=== PATIENT | female | born 1990 | race Caucasian/White ===

== ENCOUNTER 2017-10-15 21:50 | Emergency (ER) | payer OTHER ==
[2017-10-15] MEDS ORDERED: IBUPROFEN 400 MG TAB ONE (23:12)
[2017-10-15 23:37] LABS: Urine Blood 2+ (NEG); Urine Glucose NEGATIVE (NEG); Urine Protein NEGATIVE (NEG); Urine Specific Gravity >1.030 (1.005-1.030); Urine pH 5.5 (5.0-7.0)
--- NOTE | 2017-10-16 00:39 | ER ---
Nurse's Notes [facility] Name: Nehal Hudson Age: 26 yrs Sex: Female : 1990 Arrival Date: 10/15/2017 Time: 22:04 Bed 5 Private MD: Diagnosis: Other specified sprain of right wrist Presentation: 10/15 22:04 Presenting complaint: Patient states: I have been having pain in my right hand and la1 wrist since yesterday, Im not sure exactly what happened but I am having redness and swelling my right hand. Transition of care: patient was not received from another setting of care. Onset of symptoms was October 15, 2017. Initial Sepsis Screen: Does the patient meet any 2 criteria? No. Patient's initial sepsis screen is negative. Does the patient have a suspected source of infection? No. Patient's initial sepsis screen is negative. Care prior to arrival: None. 22:04 Method Of Arrival: Ambulatory la1 22:04 Acuity: AC 4 la1 Triage Assessment: 22:31 General: Appears in no apparent distress. Behavior is calm, cooperative. ak1 10/16 00:50 Pain: Complains of pain in right hand. 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 - Social history:: Smoking status: Patient/guardian denies using tobacco. Screenin:30 Abuse screen: Denies threats or abuse. Denies injuries from another. Nutritional ak1 screening: No deficits noted. Tuberculosis screening: No symptoms or risk factors identified. Fall Risk None identified. Assessment: 10/16 00:50 General: Appears in no apparent distress. Behavior is calm, cooperative. Pain: ak1 Complains of pain in right hand. Neuro: No deficits noted. Cardiovascular: No deficits noted. Respiratory: No deficits noted. GI: No signs and/or symptoms were reported involving the gastrointestinal system. : No signs and/or symptoms were reported regarding the genitourinary system. EENT: No signs and/or symptoms were reported regarding the EENT system. Derm: No signs and/or symptoms reported regarding the dermatologic system. Musculoskeletal: Range of motion: intact in all extremities. Vital Signs: 10/15 22:05 BP 116 / 90; Pulse 98; Resp 16; Temp 98.6; Pulse Ox 100% on R/A; Weight 64.86 kg; la1 Height 5 ft. 1 in. (154.94 cm); 22:05 Body Mass Index 27.02 (64.86 kg, 154.94 cm) la1 ED Course: 22:04 Patient arrived in ED. ds1 22:05 Triage completed. la1 22:06 Arm band placed on right wrist. la1 22:10 Loreto Husain FNP is PHCP. kav 22:10 Edy Olivares MD is Attending Physician. kav 22:30 Heather Elkins, CHRISTIE is Primary Nurse. ak1 22:30 Patient has correct armband on for positive identification. Bed in low position. Call ak1 light in reach. Side rails up X 1. Pulse ox on. NIBP on. 10/16 00:15 Hand Right 3 View XRAY In Process Unspecified. EDMS 00:15 Forearm Right XRAY In Process Unspecified. EDMS 00:49 No provider procedures requiring assistance completed. Patient did not have IV access ak1 during this emergency room visit. Administered Medications: 10/15 23:18 Drug: Ibuprofen 800 mg Route: PO; ak1 10/16 00:46 Follow up: Response: No adverse reaction ak1 Outcome: 00:39 Discharge ordered by . kav 00:50 Discharged to home ambulatory. ak1 00:50 Condition: good 00:50 Discharge instructions given to patient, Instructed on discharge instructions, follow up and referral plans. no drinking with medication, no driving heavy equipment, medication usage, Demonstrated understanding of instructions, follow-up care, medications, Prescriptions given X 1. 00:51 Patient left the ED. ak1 Signatures: Dispatcher [employer] EDMT Loreto Husain FNP FNP kav Sanford, Demi ds1 Maximo Mays RN RN la Heather Elkins RN RN ak1
--- NOTE | 2017-10-16 00:39 | EDPHYS ---
Physician Documentation [facility] Name: Nehal Hudson Age: 26 yrs Sex: Female : 1990 Arrival Date: 10/15/2017 Time: 22:04 Bed 5 Private MD: Edy Rodriguez HPI: 10/15 22:10 This 26 yrs old Female presents to ER via Ambulatory with complaints of Hand kav Pain. 10/16 00:28 The patient or guardian reports swelling, tenderness. The complaints affect the right kav hand diffusely. 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 Onset: The symptoms/episode began/occurred acutely, 2 month(s) ago. Modifying factors: The symptoms are alleviated by nothing, the symptoms are aggravated by movement. Associated signs and symptoms: The patient has no apparent associated signs or symptoms. Severity of symptoms: At their worst the symptoms were mild, just prior to arrival. The patient has not experienced similar symptoms in the past. The patient has not recently seen a physician. 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 - Social history:: Smoking status: Patient/guardian denies using tobacco. ROS: 10/16 00:29 Constitutional: Negative for fever, chills, and weight loss, Eyes: Negative for injury, kav pain, redness, and discharge, ENT: Negative for injury, pain, and discharge, Neck: Negative for injury, pain, and swelling, Cardiovascular: Negative for chest pain, palpitations, and edema, Respiratory: Negative for shortness of breath, cough, wheezing, and pleuritic chest pain, Abdomen/GI: Negative for abdominal pain, nausea, vomiting, diarrhea, and constipation, Back: Negative for injury and pain, : Negative for injury, bleeding, discharge, and swelling, Skin: Negative for injury, rash, and discoloration, Neuro: Negative for headache, weakness, numbness, tingling, and seizure, Psych: Negative for depression, anxiety, suicide ideation, homicidal ideation, and hallucinations, Allergy/Immunology: Negative for hives, rash, and allergies, Endocrine: Negative for neck swelling, polydipsia, polyuria, polyphagia, and marked weight changes, Hematologic/Lymphatic: Negative for swollen nodes, abnormal bleeding, and unusual bruising. MS/extremity: Positive for pain, swelling. Exam: 00:29 Constitutional: This is a well developed, well nourished patient who is awake, alert, kav and in no acute distress. Head/Face: Normocephalic, atraumatic. Eyes: Pupils equal round and reactive to light, extra-ocular motions intact. Lids and lashes normal. Conjunctiva and sclera are non-icteric and not injected. Cornea within normal limits. Periorbital areas with no swelling, redness, or edema. ENT: Nares patent. No nasal discharge, no septal abnormalities noted. Tympanic membranes are normal and external auditory canals are clear. Oropharynx with no redness, swelling, or masses, exudates, or evidence of obstruction, uvula midline. Mucous membranes moist. Neck: Trachea midline, no thyromegaly or masses palpated, and no cervical lymphadenopathy. Supple, full range of motion without nuchal rigidity, or vertebral point tenderness. No Meningismus. Chest/axilla: Normal chest wall appearance and motion. Nontender with no deformity. No lesions are appreciated. Cardiovascular: Regular rate and rhythm with a normal S1 and S2. No gallops, murmurs, or rubs. Normal PMI, no JVD. No pulse deficits. Respiratory: Lungs have equal breath sounds bilaterally, clear to auscultation and percussion. No rales, rhonchi or wheezes noted. No increased work of breathing, no retractions or nasal flaring. Abdomen/GI: Soft, non-tender, with normal bowel sounds. No distension or tympany. No guarding or rebound. No evidence of tenderness throughout. Back: No spinal tenderness. No costovertebral tenderness. Full range of motion. Skin: Warm, dry with normal turgor. Normal color with no rashes, no lesions, and no evidence of cellulitis. Neuro: Awake and alert, GCS 15, oriented to person, place, time, and situation. Cranial nerves II-XII grossly intact. Motor strength 5/5 in all extremities. Sensory grossly intact. Cerebellar exam normal. Normal gait. Psych: Awake, alert, with orientation to person, place and time. Behavior, mood, and affect are within normal limits. 00:29 Musculoskeletal/extremity: Extremities: noted in the right hand: pain, swelling, ROM: limited active range of motion, in the right hand, Circulation is intact in all extremities. Sensation intact. Joints: painful range of motion, swelling. Vital Signs: 10/15 22:05 BP 116 / 90; Pulse 98; Resp 16; Temp 98.6; Pulse Ox 100% on R/A; Weight 64.86 kg; la1 Height 5 ft. 1 in. (154.94 cm); 22:05 Body Mass Index 27.02 (64.86 kg, 154.94 cm) la1 MDM: 22:24 Patient medically screened. [facility] 10/15 23:18 Order name: Urine Dipstick--Ancillary (enter results); Complete Time: 23:40 [facility] 10/15 23:40 Interpretation: Abnormal: UBLD 2+. [facility] 10/15 23:18 Order name: Urine --Ancillary (enter results); Complete Time: 23:40 [facility] 10/15 23:40 Interpretation: Abnormal: USPGR >1.030. [facility] 10/15 23:06 Order name: Urine Test (obtain specimen); Complete Time: 23:17 ka 10/15 23:06 Order name: Hand Right 3 View XRAY [facility] 10/15 23:06 Order name: Forearm Right XRAY [facility] 10/16 00:40 Order name: Charles Wrap; Complete Time: 00:46 kav Administered Medications: 23:18 Drug: Ibuprofen 800 mg Route: PO; ak1 10/16 00:46 Follow up: Response: No adverse reaction ak1 Disposition: 07:11 Co-signature as Attending Physician, Edy Olivares MD I agree with the assessment and [facility] plan of care. Disposition: 10/16/17 00:39 Discharged to Home. Impression: Other specified sprain of right wrist. - Condition is Stable. - Discharge Instructions: Wrist Pain, [id number]. - Prescriptions for Ibuprofen 800 mg Oral Tablet - take 1 tablet by ORAL route every 8 hours As needed take with food; 30 tablet. - Medication Reconciliation Form, Thank You Letter form. - Follow up: Private Physician; When: 5 - 6 days; Reason: Recheck today's complaints, Continuance of care, Re-evaluation by your physician. - Problem is new. - Symptoms have improved. Signatures: Dispatcher [employer] EDMS Edy Olivares, Loreto Tabor MD, cha, FLOOR SCRAPER Maximo Maravilla, RN RN la1 Heather Elkins RN RN ak1 Corrections: (The following items were deleted from the chart) 00:51 00:39 10/16/2017 00:39 Discharged to Home. Impression: Other specified sprain of right ak1 wrist. Condition is Stable. Discharge Instructions: Wrist Pain, [id number]. Prescriptions for Ibuprofen 800 mg Oral Tablet - take 1 tablet by ORAL route every 8 hours As needed take with food; 30 tablet. and Forms are Medication Reconciliation Form, Thank You Letter, Antibiotic Education, Prescription Opioid Use. Follow up: Private Physician; When: 5 - 6 days; Reason: Recheck today's complaints, Continuance of care, Re-evaluation by your physician. Problem is new. Symptoms have improved. praful
--- NOTE | 2017-10-16 09:09 | RAD REPORT ---
EXAM DESCRIPTION: RAD - Hand Right 3 View - 10/16/2017 12:17 am CLINICAL HISTORY: Right hand and forearm pain and swelling COMPARISON: None. FINDINGS: Right forearm and right hand, multiple views. No bone or joint abnormality is detected.
--- NOTE | 2017-10-16 10:21 | RAD REPORT ---
EXAM DESCRIPTION: RAD - Forearm Right - 10/16/2017 12:16 am CLINICAL HISTORY: Right hand and forearm pain and swelling COMPARISON: None. FINDINGS: Right forearm and right hand, multiple views. No bone or joint abnormality is detected.
== END 2017-10-16 00:51 | disposition home or self-care (01) ==
LOC: ER 21:50
DX: S63.591A Other specified sprain of right wrist, initial encounter (principal); X58.XXXA Exposure to other specified factors, initial encounter; Y93.89 Activity, other specified; Y92.009 Unspecified place in unspecified non-institutional (private) residence as the place of occurrence of the external cause
CPT/HCPCS: 81003; 81025; 99284

== ENCOUNTER 2017-10-19 12:38 | Emergency (ER) | payer OTHER ==
[2017-10-19] MEDS ORDERED: predniSONE 20 MG TAB ONE (13:03)
[2017-10-19] MEDS ORDERED: IPRATROPIUM BROM 0.5MG/2.5ML ONE (13:03)
[2017-10-19] MEDS ORDERED: ALBUTEROL 2.5 MG/3 ML NEB SOL ONE (13:03)
--- NOTE | 2017-10-19 13:44 | EDPHYS ---
Physician Documentation [facility] Name: Nehal Hudson Age: 26 yrs Sex: Female : 1990 Arrival Date: 10/19/2017 Time: 12:41 Bed 24 Private MD: None, None ED Physician Edy Olivares HPI: 10/19 13:02 This 26 yrs old Female presents to ER via Ambulatory with complaints of kb Shortness Of Breath. 13:06 The patient has shortness of breath with light activity, and the patient has a history kb of asthma. Onset: The symptoms/episode began/occurred yesterday. Duration: The symptoms are continuous, and are unchanged since they started. The patient's shortness of breath is aggravated by exertion, is alleviated by nothing. Associated signs and symptoms: The patient has no apparent associated signs or symptoms. Severity of symptoms: At their worst the symptoms were mild moderate in the emergency department the symptoms are unchanged. The patient has experienced similar episodes in the past, multiple times. The patient has not recently seen a physician. 13:43 Pt states she has asthma and normally gets better with steroids when this happens. 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 - Social history:: Smoking status: Patient/guardian denies using tobacco. ROS: 13:05 Constitutional: Negative for fever, chills, and weight loss, Cardiovascular: Negative kb for chest pain, palpitations, and edema, Abdomen/GI: Negative for abdominal pain, nausea, vomiting, diarrhea, and constipation, Back: Negative for injury and pain, MS/Extremity: Negative for injury and deformity, Skin: Negative for injury, rash, and discoloration, Neuro: Negative for headache, weakness, numbness, tingling, and seizure. 13:05 Respiratory: Positive for dyspnea on exertion, shortness of breath, Negative for cough, hemoptysis, orthopnea, pleurisy, sputum production, wheezing. Exam: 13:05 Constitutional: This is a well developed, well nourished patient who is awake, alert, kb and in no acute distress. Head/Face: Normocephalic, atraumatic. Neck: Trachea midline, no thyromegaly or masses palpated, and no cervical lymphadenopathy. Supple, full range of motion without nuchal rigidity, or vertebral point tenderness. No Meningismus. Chest/axilla: Normal chest wall appearance and motion. Nontender with no deformity. No lesions are appreciated. Cardiovascular: Regular rate and rhythm with a normal S1 and S2. No gallops, murmurs, or rubs. Normal PMI, no JVD. No pulse deficits. Respiratory: Lungs have equal breath sounds bilaterally, clear to auscultation and percussion. No rales, rhonchi or wheezes noted. No increased work of breathing, no retractions or nasal flaring. Abdomen/GI: Soft, non-tender, with normal bowel sounds. No distension or tympany. No guarding or rebound. No evidence of tenderness throughout. Skin: Warm, dry with normal turgor. Normal color with no rashes, no lesions, and no evidence of cellulitis. MS/ Extremity: Pulses equal, no cyanosis. Neurovascular intact. Full, normal range of motion. Neuro: Awake and alert, GCS 15, oriented to person, place, time, and situation. Cranial nerves II-XII grossly intact. Motor strength 5/5 in all extremities. Sensory grossly intact. Cerebellar exam normal. Normal gait. Vital Signs: 12:46 BP 127 / 90; Pulse 63; Resp 20; Temp 98.3; Pulse Ox 100% on R/A; Weight 63.5 kg; Height la1 5 ft. 1 in. (154.94 cm); 13:44 BP 99 / 65; Pulse 93; Resp 20; Pulse Ox 100% on R/A; Pain 0/10; ed1 12:46 Body Mass Index 26.45 (63.50 kg, 154.94 cm) la1 MDM: 12:51 Patient medically screened. kb 13:04 Data reviewed: vital signs, nurses notes. Data interpreted: Pulse oximetry: on room air kb is 100 %. Interpretation: normal. 13:43 Counseling: I had a detailed discussion with the patient and/or guardian regarding: the kb historical points, exam findings, and any diagnostic results supporting the discharge/admit diagnosis, the need for outpatient follow up, a family practitioner, to return to the emergency department if symptoms worsen or persist or if there are any questions or concerns that arise at home. Administered Medications: 13:06 Drug: DuoNeb (3:1) (2.5 mg - 0.5 mg) 3 ml Route: Nebulizer; ed1 13:46 Follow up: Response: No adverse reaction; Marked relief of symptoms ed1 13:06 Drug: predniSONE 40 mg Route: PO; ed1 13:45 Follow up: Response: No adverse reaction ed1 Disposition: 10/20 09:17 Co-signature as Attending Physician, Edy Olivares MD I agree with the assessment and alanna plan of care. Disposition: 10/19/17 13:43 Discharged to Home. Impression: Unspecified asthma with (acute) exacerbation. - Condition is Stable. - Discharge Instructions: Asthma, Adult, [id number]. - Prescriptions for Prednisone 20 mg Oral Tablet - take 1 tablet by ORAL route once daily for 5 days; 5 tablet. - Medication Reconciliation Form, Thank You Letter, Antibiotic Education, Prescription Opioid Use form. - Follow up: Emergency Department; When: As needed; Reason: Worsening of condition. Follow up: Private Physician; When: 2 - 3 days; Reason: Recheck today's complaints, Continuance of care, Re-evaluation by your physician. Signatures: Yadira Pulido, RESISTOR TESTER-C RESISTOR TESTER-Edy Marvin MD MD cha Riggs, Erika, RECLAMATION FURNACE OPERATOR RECLAMATION FURNACE OPERATOR ed1 Maximo Mays RN RN la1 Corrections: (The following items were deleted from the chart) 10/19 13:51 13:43 10/19/2017 13:43 Discharged to Home. Impression: Unspecified asthma with (acute) ed1 exacerbation. Condition is Stable. Forms are Medication Reconciliation Form, Thank You Letter, Antibiotic Education, Prescription Opioid Use. Follow up: Emergency Department; When: As needed; Reason: Worsening of condition. Follow up: Private Physician; When: 2 - 3 days; Reason: Recheck today's complaints, Continuance of care, Re-evaluation by your physician. kb
--- NOTE | 2017-10-19 13:44 | ER ---
Nurse's Notes [facility] Name: Nehal Hudson Age: 26 yrs Sex: Female : 1990 Arrival Date: 10/19/2017 Time: 12:41 Bed 24 Private MD: None, None Diagnosis: Unspecified asthma with (acute) exacerbation Presentation: 10/19 12:46 Presenting complaint: Patient states: Hx of asthma, increasing sob since yesterday. no la1 resp distress. Transition of care: patient was not received from another setting of care. Onset of symptoms was October 19, 2017. Initial Sepsis Screen: Does the patient meet any 2 criteria? No. Patient's initial sepsis screen is negative. Does the patient have a suspected source of infection? No. Patient's initial sepsis screen is negative. Care prior to arrival: None. 12:46 Method Of Arrival: Ambulatory la1 12:46 Acuity: AC 4 la1 Triage Assessment: 12:53 General: Appears in no apparent distress. Respiratory: Onset: The symptoms/episode ed1 began/occurred yesterday, the patient has mild shortness of breath. Respiratory: Reports shortness of breath at rest Airway is patent Respiratory effort is even, unlabored, Respiratory pattern is regular, symmetrical, Breath sounds are clear bilaterally. 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 - Social history:: Smoking status: Patient/guardian denies using tobacco. Screenin:53 Abuse screen: Denies threats or abuse. Denies injuries from another. Nutritional ed1 screening: No deficits noted. Tuberculosis screening: No symptoms or risk factors identified. Fall Risk None identified. Assessment: 12:53 General: Appears in no apparent distress. Behavior is calm, cooperative, Denies fever, ed1 feeling ill, fatigue, chills. Pain: Denies pain. Neuro: Level of Consciousness is awake, alert, obeys commands, Oriented to person, place, time, situation. Cardiovascular: Denies chest pain, Heart tones S1 S2 present Rhythm is sinus rhythm. Respiratory: Reports shortness of breath at rest Airway is patent Trachea midline Respiratory effort is even, unlabored, Respiratory pattern is regular, symmetrical, Breath sounds are clear bilaterally. Denies cough, labored breathing, pain with respiration, pain with cough, pain with movement, air hunger. GI: No signs and/or symptoms were reported involving the gastrointestinal system. : No signs and/or symptoms were reported regarding the genitourinary system. EENT: No signs and/or symptoms were reported regarding the EENT system. Derm: Skin is pink, warm \T\ dry. Musculoskeletal: Circulation, motion, and sensation intact. Range of motion: intact in all extremities. 12:53 Reassessment: I agree with assessment completed by WILLIAM Bettencourt . aa5 13:44 Reassessment: Patient appears in no apparent distress at this time. Patient and/or ed1 family updated on plan of care and expected duration. Pain level reassessed. Patient is alert, oriented x 3, equal unlabored respirations, skin warm/dry/pink. Patient denies pain at this time. Patient states feeling better. Patient states symptoms have improved. Vital Signs: 12:46 BP 127 / 90; Pulse 63; Resp 20; Temp 98.3; Pulse Ox 100% on R/A; Weight 63.5 kg; Height la1 5 ft. 1 in. (154.94 cm); 13:44 BP 99 / 65; Pulse 93; Resp 20; Pulse Ox 100% on R/A; Pain 0/10; ed1 12:46 Body Mass Index 26.45 (63.50 kg, 154.94 cm) la1 ED Course: 12:41 Patient arrived in ED. sb2 12:41 None, None is Private Physician. sb2 12:41 Yadira Pulido FNP-C is [facility]. kb 12:41 Edy Olivares MD is Attending Physician. kb 12:46 Triage completed. la1 12:47 Rut Ward LVN is Primary Nurse. ed1 12:47 Arm band placed on left wrist. la1 12:53 Patient has correct armband on for positive identification. ed1 13:07 Initial Neb Treatment Given as ordered Patient was instructed and evaluated on ed1 procedure Patient tolerated procedure well without adverse effect. 13:44 No provider procedures requiring assistance completed. Patient did not have IV access ed1 during this emergency room visit. Administered Medications: 13:06 Drug: DuoNeb (3:1) (2.5 mg - 0.5 mg) 3 ml Route: Nebulizer; ed1 13:46 Follow up: Response: No adverse reaction; Marked relief of symptoms ed1 13:06 Drug: predniSONE 40 mg Route: PO; ed1 13:45 Follow up: Response: No adverse reaction ed1 Outcome: 13:43 Discharge ordered by MD. mcfarlane 13:50 Discharged to home ambulatory. ed1 13:50 Condition: good 13:50 Discharge instructions given to patient, Instructed on discharge instructions, follow up and referral plans. medication usage, Demonstrated understanding of instructions, follow-up care, medications, Prescriptions given X 1. 13:51 Patient left the ED. ed1 Signatures: Yadira Pulido, STUDENT COUNSELOR-C STUDENT COUNSELOR-Daiana Marte, RN RN aa5 Rut Ward LVN ATTORNEY ed1 Maximo Mays RN RN la1 Denisa Arana sb2
== END 2017-10-19 13:51 | disposition home or self-care (01) ==
LOC: ER 12:38
DX: J45.901 Unspecified asthma with (acute) exacerbation (principal)
CPT/HCPCS: 94640; 99284; J7512

== ENCOUNTER 2017-10-20 04:24 | Emergency (ER) | payer OTHER ==
[2017-10-20] MEDS ORDERED: ONDANSETRON 4 MG/2 ML VIAL ONE ×2 (04:56→07:51)
[2017-10-20] MEDS ORDERED: NA CHLORIDE 0.9% 1,000 ML ONE (04:59)
[2017-10-20] MEDS ORDERED: MORPHINE 4 MG/ML SYR ONE (04:59)
[2017-10-20 05:22] LABS: Absolute Lymphocytes (CBC) 3.2 K/uL (0.7-4.9); Absolute Monocytes 0.9 K/uL (0.1-1.3); Absolute Neutrophil 7.7 K/uL (1.8-8.0); Basophils % 0.6 % (0-1.3); Eosinophils % 0.2 % (0-4.4); Hematocrit 40.7 % (36.0-45.0); Lymphocytes % 26.9 % (15.3-44.8); MCH 29.3 pg (27.0-35.0); MCV 85.3 fL (80-100); MPV 8.6 fL (7.6-11.3); Monocytes % 7.5 % (3.3-12.3); RBC Red Blood Cell Count 4.77 M/uL (3.86-4.86)
[2017-10-20 05:23] LABS: Urine Blood 2+ (NEG); Urine Glucose NEGATIVE (NEG); Urine Protein 1+ (NEG); Urine Specific Gravity >1.030 (1.005-1.030)
[2017-10-20 05:34] LABS: Urine Bacteria <20 /HPF (<20); Urine Culture Reflex Order NOT NEEDED; Urine Mucus HEAVY /HPF (NONE SEEN)
[2017-10-20 05:36] LABS: Bicarbonate 21 mEq/L (21-31); Glucose Level 116 mg/dL (65-120); Lipase 21 U/L (22-51); Sodium Level 142 mEq/L (135-145)
--- NOTE | 2017-10-20 05:40 | ER ---
Nurse's Notes [facility] Name: Nehal Hudson Age: 26 yrs Sex: Female : 1990 Arrival Date: 10/20/2017 Time: 04:28 Bed 16 Private MD: Clementine Bhagat Diagnosis: Migraine. Vomiting. Hypokalemia Presentation: 10/20 04:36 Presenting complaint: Patient states: she vomited [address] to the hospital mg2 today. she was here this afternoon for shortness of breath and was given breathing treatments. She also got headache and neck pain at worst level. Transition of care: patient was not received from another setting of care. Onset of symptoms was October 20, 2017. Initial Sepsis Screen: Does the patient meet any 2 criteria? No. Patient's initial sepsis screen is negative. Does the patient have a suspected source of infection? No. Patient's initial sepsis screen is negative. Care prior to arrival: None. 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 - Social history:: Smoking status: Patient/guardian denies using alcohol, street drugs, tobacco products. Screenin:43 Abuse screen: Denies threats or abuse. Denies injuries from another. Nutritional mg2 screening: No deficits noted. Tuberculosis screening: No symptoms or risk factors identified. Fall Risk None identified. Assessment: 04:43 Pain: Complains of pain in head and neck Pain does not radiate. Pain currently is 10 mg2 out of 10 on a pain scale. Quality of pain is described as aching, Pain began gradually, Is intermittent, Alleviated by Aggravated by vomiting. Neuro: Level of Consciousness is awake, alert, Oriented to person, place, time. Cardiovascular: Capillary refill is > 3 seconds Patient's skin is warm and dry. Respiratory: Airway is patent Respiratory effort is even, unlabored, Respiratory pattern is regular, symmetrical. GI: Reports vomiting. : No signs and/or symptoms were reported regarding the genitourinary system. EENT: No signs and/or symptoms were reported regarding the EENT system. Derm: Skin is intact, Skin is pink, warm \T\ dry. normal. Musculoskeletal: No signs and/or symptoms reported regarding the musculoskeletal system. 06:21 Reassessment: patient is on iv KCL and needs a repeat K level post infusion. mg2 07:16 Reassessment: Repeat K sent to lab, awaiting results. Pt denies discomfort at this time.jl7 07:40 Reassessment: Pt c/o of nausea, provider notified, see MAR for orders. jl7 Vital Signs: 04:41 BP 126 / 78; Pulse 99; Resp 18; Pulse Ox 100% ; Pain 10/10; mg2 04:41 Temp 97.7; aa1 04:45 Weight 62.6 kg; Height 5 ft. 1 in. (154.94 cm); mg2 05:26 BP 101 / 77; Pulse 87; Resp 18; Pulse Ox 100% on R/A; mg2 06:22 BP 122 / 86; Pulse 69; Resp 18; Pain 0/10; mg2 07:16 BP 107 / 62; Pulse 70; Resp 16; Pulse Ox 100% ; jl7 07:59 BP 105 / 75; Pulse 71; Resp 16; Pulse Ox 100% ; jl7 04:45 Body Mass Index 26.07 (62.60 kg, 154.94 cm) mg2 ED Course: 04:28 Patient arrived in ED. es 04:29 Clementine Bhagat MD is Private Physician. es 04:36 Jayden Kim RN is Primary Nurse. mg2 04:39 Triage completed. mg2 04:43 Arm band placed on Patient placed in waiting room, on pulse oximetry. mg2 04:47 Initial lab(s) drawn, by me. Inserted saline lock: 20 gauge in right antecubital area, aa1 using aseptic technique. Blood collected. 04:51 Urine collected: clean catch specimen, daljit colored. aa1 05:16 Tc Zarate MD is Attending Physician. pkl 05:23 Patient has correct armband on for positive identification. Bed in low position. Call mg2 light in reach. Side rails up X 1. Door closed. Noise minimized. Warm blanket given. 05:26 No provider procedures requiring assistance completed. mg2 05:39 Millender, Clementine, MD is Referral Physician. pkl 07:15 Primary Nurse role handed off by Jayden Kim RN jl7 07:15 Latrice Thorne RN is Primary Nurse. jl7 07:40 IV discontinued, intact, bleeding controlled, No redness/swelling at site. Pressure jl7 dressing applied. Administered Medications: 05:02 Drug: NS 0.9% 1000 ml Route: IV; Rate: 1000 ml; Site: right antecubital; aa1 05:03 Drug: Zofran 4 mg Route: IVP; Site: right antecubital; aa1 05:03 Drug: morphine 4 mg Route: IVP; Site: right antecubital; aa1 05:55 Drug: Potassium Chloride 20 mEq Route: IV; Rate: calculated rate; Site: right mg2 antecubital; 07:18 Follow up: Response: No adverse reaction; IV Status: Completed infusion jl7 05:55 Drug: K-Dur 40 mEq Route: PO; mg2 07:18 Follow up: Response: No adverse reaction jl7 06:23 Not Given (Patient Refused): Phenergan 12.5 mg IVP once mg2 07:45 Drug: Zofran 4 mg Route: IVP; Site: right antecubital; jl7 08:05 Follow up: Response: No adverse reaction jl7 Outcome: 05:39 Discharge ordered by . pkl 08:05 Discharged to home ambulatory. jl7 08:05 Condition: stable 08:05 Discharge instructions given to patient, Instructed on discharge instructions, follow up and referral plans. medication usage, Demonstrated understanding of instructions, follow-up care, medications, Prescriptions given X 2. 08:06 Patient left the ED. jl7 Signatures: Piper Mckeon RN RN aa1 Tc Zarate MD MD pkVesna Walker Jahala, RN RN jl7 Jayden Kim RN RN mg2 Corrections: (The following items were deleted from the chart) 05:25 05:24 General: Appears mg2 mg2
--- NOTE | 2017-10-20 05:40 | EDPHYS ---
Physician Documentation [facility] Name: Nehal Hudson Age: 26 yrs Sex: Female : 1990 Arrival Date: 10/20/2017 Time: 04:28 Bed 16 Private MD: Clementine Bhagat ED Physician Tc Zarate HPI: 10/20 05:35 This 26 yrs old Female presents to ER via Ambulatory with complaints of pkl Vomiting, Neck Pain, <24hrs Old, Headache. 05:35 The patient complains of pain to the forehead. The patient describes the headache as pkl constant. Onset: The symptoms/episode began/occurred just prior to arrival, 4 hour(s) ago. Associated signs and symptoms: Pertinent positives: nausea, vomiting. The patient has been recently seen at the [facility] Emergency Department, today, for unrelated complaints, wheezing and asthma. 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 - Social history:: Smoking status: Patient/guardian denies using alcohol, street drugs, tobacco products. ROS: 05:35 Eyes: Negative for injury, pain, redness, and discharge, ENT: Negative for injury, pkl pain, and discharge, Neck: Negative for injury, pain, and swelling, Cardiovascular: Negative for chest pain, palpitations, and edema, Respiratory: Negative for shortness of breath, cough, wheezing, and pleuritic chest pain. 05:35 Abdomen/GI: Positive for nausea and vomiting. 05:35 Back: Negative for acute changes. 05:35 : Negative for urinary symptoms. 05:35 MS/extremity: Negative for acute changes. 05:35 Skin: Negative for rash. 05:35 Neuro: Positive for headache. Exam: 05:35 Head/Face: Normocephalic, atraumatic. Eyes: Pupils equal round and reactive to light, pkl extra-ocular motions intact. Lids and lashes normal. Conjunctiva and sclera are non-icteric and not injected. Cornea within normal limits. Periorbital areas with no swelling, redness, or edema. ENT: Nares patent. No nasal discharge, no septal abnormalities noted. Tympanic membranes are normal and external auditory canals are clear. Oropharynx with no redness, swelling, or masses, exudates, or evidence of obstruction, uvula midline. Mucous membranes moist. Neck: Trachea midline, no thyromegaly or masses palpated, and no cervical lymphadenopathy. Supple, full range of motion without nuchal rigidity, or vertebral point tenderness. No Meningismus. Chest/axilla: Normal chest wall appearance and motion. Nontender with no deformity. No lesions are appreciated. Cardiovascular: Regular rate and rhythm with a normal S1 and S2. No gallops, murmurs, or rubs. Normal PMI, no JVD. No pulse deficits. Respiratory: Lungs have equal breath sounds bilaterally, clear to auscultation and percussion. No rales, rhonchi or wheezes noted. No increased work of breathing, no retractions or nasal flaring. Abdomen/GI: Soft, non-tender, with normal bowel sounds. No distension or tympany. No guarding or rebound. No evidence of tenderness throughout. Back: No spinal tenderness. No costovertebral tenderness. Full range of motion. Skin: Warm, dry with normal turgor. Normal color with no rashes, no lesions, and no evidence of cellulitis. MS/ Extremity: Pulses equal, no cyanosis. Neurovascular intact. Full, normal range of motion. Neuro: Awake and alert, GCS 15, oriented to person, place, time, and situation. Cranial nerves II-XII grossly intact. Motor strength 5/5 in all extremities. Sensory grossly intact. Cerebellar exam normal. Normal gait. Vital Signs: 04:41 BP 126 / 78; Pulse 99; Resp 18; Pulse Ox 100% ; Pain 10/10; mg2 04:41 Temp 97.7; aa1 04:45 Weight 62.6 kg; Height 5 ft. 1 in. (154.94 cm); mg2 05:26 BP 101 / 77; Pulse 87; Resp 18; Pulse Ox 100% on R/A; mg2 06:22 BP 122 / 86; Pulse 69; Resp 18; Pain 0/10; mg2 07:16 BP 107 / 62; Pulse 70; Resp 16; Pulse Ox 100% ; jl7 07:59 BP 105 / 75; Pulse 71; Resp 16; Pulse Ox 100% ; jl7 04:45 Body Mass Index 26.07 (62.60 kg, 154.94 cm) mg2 MDM: 05:35 Data reviewed: vital signs, nurses notes, lab test result(s). pkl 05:39 Patient medically screened. [facility] 10/20 05:02 Order name: Amylase, Serum; Complete Time: 05:48 10/20 05:02 Order name: Basic Metabolic Panel; Complete Time: 05:48 aa10/20 05:02 Order name: CBC with Diff; Complete Time: 05:34 aa10/20 05:02 Order name: Hepatic Function; Complete Time: 05:48 10/20 05:02 Order name: Lipase; Complete Time: 05:48 aa10/20 05:02 Order name: Urine Microscopic Only; Complete Time: 05:34 aa10/20 05:10 Order name: Urine Dipstick--Ancillary (enter results); Complete Time: 05:34 [facility] 10/20 05:10 Order name: Urine --Ancillary (enter results); Complete Time: 05:34 [facility] 10/20 06:55 Order name: Potassium mg2 10/20 04:46 Order name: Saline Lock; Complete Time: 04:46 10/20 05:02 Order name: Urine Test (obtain specimen); Complete Time: 05:02 aa10/20 05:02 Order name: Labs collected and sent; Complete Time: 05:02 10/20 05:02 Order name: Urine Dipstick-Ancillary (obtain specimen); Complete Time: 05:02 aa1 Administered Medications: 05:02 Drug: NS 0.9% 1000 ml Route: IV; Rate: 1000 ml; Site: right antecubital; aa1 05:03 Drug: Zofran 4 mg Route: IVP; Site: right antecubital; aa1 05:03 Drug: morphine 4 mg Route: IVP; Site: right antecubital; aa1 05:55 Drug: Potassium Chloride 20 mEq Route: IV; Rate: calculated rate; Site: right mg2 antecubital; 07:18 Follow up: Response: No adverse reaction; IV Status: Completed infusion 05:55 Drug: K-Dur 40 mEq Route: PO; mg2 07:18 Follow up: Response: No adverse reaction jl7 06:23 Not Given (Patient Refused): Phenergan 12.5 mg IVP once mg2 07:45 Drug: Zofran 4 mg Route: IVP; Site: right antecubital; jl7 08:05 Follow up: Response: No adverse reaction jl7 Disposition: 10/20/17 05:39 Discharged to Home. Impression: Migraine. Vomiting. Hypokalemia. - Condition is Stable. - Prescriptions for Ultram 50 mg Oral Tablet - take 1 tablet by ORAL route every 8 hours As needed; 20 tablet. Zofran 4 mg Oral Tablet - take 1 tablet by ORAL route every 12 hours As needed; 6 tablet. - Medication Reconciliation Form, Thank You Letter, Antibiotic Education, Prescription Opioid Use form. - Follow up: Clementine Bhagat MD; When: 2 - 3 days; Reason: Re-evaluation by your physician. - Problem is new. - Symptoms have improved. Signatures: Dispatcher [employer] [facility] Piper Mckeon RN RN aa1 Tc Zarate MD MD pkl Latrice Thorne RN RN jl7 Jayden Kim RN RN mg2 Corrections: (The following items were deleted from the chart) 05:19 05:02 Creatinine for Radiology+C.LAB.BRZ ordered. [facility] 05:49 05:39 10/20/2017 05:39 Discharged to Home. Impression: Migraine. Condition is Stable. pkl Forms are Medication Reconciliation Form, Thank You Letter, Antibiotic Education, Prescription Opioid Use. Follow up: Clementine Bhagat; When: 2 - 3 days; Reason: Re-evaluation by your physician. Problem is new. Symptoms have improved. pkl 08:06 05:49 10/20/2017 05:39 Discharged to Home. Impression: Migraine. Vomiting. Hypokalemia. jl7 Condition is Stable. Prescriptions for Ultram 50 mg Oral Tablet - take 1 tablet by ORAL route every 8 hours As needed; 20 tablet, Zofran 4 mg Oral Tablet - take 1 tablet by ORAL route every 12 hours As needed; 6 tablet. and Forms are Medication Reconciliation Form, Thank You Letter, Antibiotic Education, Prescription Opioid Use. Follow up: Clementine Bhagat; When: 2 - 3 days; Reason: Re-evaluation by your physician. Problem is new. Symptoms have improved. pkl
[2017-10-20 05:42] LABS: ALT/SGPT 15 IU/L (10-60); AST/SGOT 17 IU/L (10-42); Albumin 4.9 g/dL (3.2-5.5); Alkaline Phosphatase 72 IU/L (42-121); Amylase Level 69 U/L (28-100); BUN Blood Urea Nitrogen 11 mg/dL (6-20); Bilirubin Direct 0.1 mg/dL (0-0.2); Bilirubin Total 0.5 mg/dL (0.3-1.2); Protein, Total 8.4 g/dL (6.0-8.3)
[2017-10-20 05:43] LABS: Potassium 2.8 mEq/L (3.6-5.0)
[2017-10-20] MEDS ORDERED: KCL 20 MEQ/100 mL IVPB 20 MEQ/100 ML BAG IV ONE (05:47)
[2017-10-20] MEDS ORDERED: POTASSIUM CL SA 10 MEQ TAB PO ONE (05:48)
[2017-10-20] MEDS ORDERED: PROMETHAZINE 25 MG/ML VIAL ONE (06:00)
== END 2017-10-20 08:06 | disposition home or self-care (01) ==
LOC: ER 04:24
DX: G43.909 Migraine, unspecified, not intractable, without status migrainosus (principal); E87.6 Hypokalemia; R11.10 Vomiting, unspecified
CPT/HCPCS: 36415; 80048; 80076; 81003; 81015; 81025; 82150; 83690; 84132; 85025; 96365; 96375; 99284; J2405; J2550; J7030

== ENCOUNTER 2017-12-24 04:34 | Emergency (ER) | payer OTHER ==
[2017-12-24] MEDS ORDERED: MECLIZINE HCL 12.5 MG TAB ONE (05:06)
[2017-12-24 05:19] LABS: Urine Blood 1+ (NEG); Urine Glucose NEGATIVE (NEG); Urine Protein NEGATIVE (NEG); Urine Specific Gravity >1.030 (1.005-1.030)
--- NOTE | 2017-12-24 06:58 | EDPHYS ---
Physician Documentation [facility] Name: Nehal Hudson Age: 27 yrs Sex: Female : 1990 Arrival Date: 12/24/2017 Time: 04:34 Bed 13 Private MD: Clementine Bhagat ED Physician Tc Zarate HPI: 12/24 04:59 This 27 yrs old Female presents to ER via Ambulatory with complaints of pkl Dizziness, Headache, Neck Pain, >24Hrs Old. 04:59 The patient presents with sense of spinning. Onset: The symptoms/episode began/occurred pkl today. Associated signs and symptoms: Pertinent positives: headache, pain in the neck. The patient has experienced similar episodes in the past, a few times. 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 - Social history:: Smoking status: Patient/guardian denies using tobacco, Patient/guardian denies using alcohol, street drugs. - Ebola Screening: : No symptoms or risks identified at this time. ROS: 04:59 Eyes: Negative for injury, pain, redness, and discharge, ENT: Negative for injury, pkl pain, and discharge. 04:59 Neck: Positive for pain with movement. 04:59 Cardiovascular: Negative for chest pain. 04:59 Respiratory: Negative for cough, shortness of breath. 04:59 Abdomen/GI: Negative for abdominal pain, nausea, vomiting, and diarrhea. 04:59 Back: Negative for acute changes. 04:59 : Negative for urinary symptoms. 04:59 MS/extremity: Negative for acute changes, injury or acute deformity. 04:59 Skin: Negative for rash. 04:59 Neuro: Positive for dizziness, headache. Exam: 04:59 Head/Face: Normocephalic, atraumatic. Eyes: Pupils equal round and reactive to light, pkl extra-ocular motions intact. Lids and lashes normal. Conjunctiva and sclera are non-icteric and not injected. Cornea within normal limits. Periorbital areas with no swelling, redness, or edema. ENT: Nares patent. No nasal discharge, no septal abnormalities noted. Tympanic membranes are normal and external auditory canals are clear. Oropharynx with no redness, swelling, or masses, exudates, or evidence of obstruction, uvula midline. Mucous membranes moist. 04:59 Neck: ROM/movement: pain, that is mild, with any movement. 04:59 Chest/axilla: Exam negative for acute changes. 04:59 Cardiovascular: Rate: normal, Rhythm: regular. 04:59 Respiratory: the patient does not display signs of respiratory distress, Respirations: normal, Breath sounds: are clear throughout. 04:59 Abdomen/GI: Bowel sounds: normal, Palpation: abdomen is soft and non-tender, in all quadrants. 04:59 Back: Exam negative for acute changes. 04:59 : Exam negative for acute changes. 04:59 Musculoskeletal/extremity: Exam is negative for abrasion. 04:59 Skin: Exam negative for rash. 04:59 Neuro: Orientation: is normal, Mentation: is normal, Cranial nerves: grossly normal, Motor: is normal. Vital Signs: 04:48 BP 127 / 81; Pulse 90; Resp 16 S; Temp 98.1(O); Pulse Ox 100% on R/A; Weight 63.5 kg bb (R); Height 5 ft. 1 in. (154.94 cm) (R); Pain 9/10; 05:09 BP 111 / 79; Pulse 88; Resp 16; Pulse Ox 100% ; ea 06:23 BP 105 / 59; Pulse 64; Resp 18; Pulse Ox 100% on R/A; ea 07:21 BP 119 / 74; Pulse 53; Resp 18; Pulse Ox 99% ; sv 08:04 BP 110 / 73; Pulse 55; Resp 16; Pulse Ox 99% ; sv 04:48 Body Mass Index 26.45 (63.50 kg, 154.94 cm) bb MDM: 04:39 Patient medically screened. pkl 06:56 Data reviewed: vital signs, nurses notes, radiologic studies, CT scan. pkl 12/24 05:11 Order name: Urine Dipstick--Ancillary (enter results); Complete Time: 05:50 ms 12/24 05:11 Order name: Urine --Ancillary (enter results); Complete Time: 05:50 ms 12/24 04:58 Order name: CT Head C Spine pkl 12/24 05:02 Order name: Urine Dipstick-Ancillary (obtain specimen); Complete Time: 05:10 aa1 12/24 05:02 Order name: Urine Test (obtain specimen); Complete Time: 05:10 aa Administered Medications: 05:07 Drug: Antivert 25 mg Route: PO; ea 07:19 Follow up: Response: No adverse reaction sv Disposition: 12/24/17 06:58 Discharged to Home. Impression: Acute headache and neck pain. Labyrinthitis. - Condition is Stable. - Prescriptions for Ultram 50 mg Oral Tablet - take 1 tablet by ORAL route every 8 hours As needed; 20 tablet. Antivert 25 mg Oral Tablet - take 1 tablet by ORAL route every 8 hours As needed; 20 tablet. - Medication Reconciliation Form, Thank You Letter, Antibiotic Education, Prescription Opioid Use form. - Follow up: Private Physician; When: 2 - 3 days; Reason: Re-evaluation by your physician. - Problem is new. - Symptoms have improved. Signatures: Dispatcher [employer] Leslie Murillo RN RN sv Piper Mckeon RN RN aa1 Tc Zarate MD MD pkl Marla Carter RN CHRISTIE bb Brynn Davidson RN RN ea Corrections: (The following items were deleted from the chart) 08:05 06:58 12/24/2017 06:58 Discharged to Home. Impression: Acute headache and neck pain. sv Labyrinthitis. Condition is Stable. Forms are Medication Reconciliation Form, Thank You Letter, Antibiotic Education, Prescription Opioid Use. Follow up: Private Physician; When: 2 - 3 days; Reason: Re-evaluation by your physician. Problem is new. Symptoms have improved. pkl
--- NOTE | 2017-12-24 06:58 | ER ---
Nurse's Notes [facility] Name: Nehal Hudson Age: 27 yrs Sex: Female : 1990 Arrival Date: 12/24/2017 Time: 04:34 Bed 13 Private MD: Clementine Bhagat Diagnosis: Acute headache and neck pain. Labyrinthitis Presentation: 12/24 04:45 Presenting complaint: Patient states: she has hx of neck pain possibly related to an bb injury to her back a few years ago yesterday she started having neck pain which has gotten worse last night she started feeling dizzy -- like the room was spinning and she felt nauseous she also got a sharp pain to her abdomen which has subsided. She is still having neck and head pain 02/09. She also states her legs have been feeling heavy since this morning she took Tylenol 1000 mg at 0300 but it is not helping. Transition of care: patient was not received from another setting of care. Onset of symptoms was December 23, 2017. Risk Assessment: Do you want to hurt yourself or someone else? Patient reports no desire to harm self or others. Initial Sepsis Screen: Does the patient meet any 2 criteria? No. Patient's initial sepsis screen is negative. Does the patient have a suspected source of infection? No. Patient's initial sepsis screen is negative. Care prior to arrival: None. 04:45 Method Of Arrival: Ambulatory bb 04:45 Acuity: AC 3 bb Triage Assessment: 04:48 Headache History: The patient has had previous headaches. 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 - Social history:: Smoking status: Patient/guardian denies using tobacco, Patient/guardian denies using alcohol, street drugs. - Ebola Screening: : No symptoms or risks identified at this time. Screenin:40 Abuse screen: Denies threats or abuse. Denies injuries from another. Abuse screen:. aa1 Nutritional screening: No deficits noted. Tuberculosis screening: No symptoms or risk factors identified. Fall Risk None identified. Assessment: 04:40 General: Appears in no apparent distress. comfortable, Behavior is calm, cooperative, aa1 appropriate for age. Pain: Complains of pain in left frontal area, left temporal area, right frontal area, right temporal area and neck Quality of pain is described as aching, throbbing, Is continuous, episodic, chronic. Neuro: Level of Consciousness is awake, alert, obeys commands, Oriented to person, place, time, situation, Moves all extremities. Gait is steady, Speech is normal, Facial symmetry appears normal, Pupils are PERRLA, Reports dizziness, headache. Cardiovascular: Heart tones S1 S2 present Rhythm is regular. Respiratory: Airway is patent Respiratory effort is even, unlabored, Respiratory pattern is regular, symmetrical. GI: No signs and/or symptoms were reported involving the gastrointestinal system. : No signs and/or symptoms were reported regarding the genitourinary system. EENT: No signs and/or symptoms were reported regarding the EENT system. Derm: Skin is intact, is healthy with good turgor, Skin is pink, warm \T\ dry. Musculoskeletal: Circulation, motion, and sensation intact. Capillary refill < 3 seconds. 05:08 Reassessment: Patient and/or family updated on plan of care and expected duration. Pain ea level reassessed. Patient is alert, oriented x 3, equal unlabored respirations, skin warm/dry/pink. 06:39 Reassessment: Patient appears in no apparent distress at this time. Patient and/or aa1 family updated on plan of care and expected duration. Pain level reassessed. Patient is alert, oriented x 3, equal unlabored respirations, skin warm/dry/pink. Awaiting CT results. 07:19 Reassessment: Waiting for CT report to be resulted before discharge. sv 08:03 Reassessment: Patient appears in no apparent distress at this time. Patient and/or sv family updated on plan of care and expected duration. Pain level reassessed. Patient is alert, oriented x 3, equal unlabored respirations, skin warm/dry/pink. Vital Signs: 04:48 BP 127 / 81; Pulse 90; Resp 16 S; Temp 98.1(O); Pulse Ox 100% on R/A; Weight 63.5 kg bb (R); Height 5 ft. 1 in. (154.94 cm) (R); Pain 9/10; 05:09 BP 111 / 79; Pulse 88; Resp 16; Pulse Ox 100% ; ea 06:23 BP 105 / 59; Pulse 64; Resp 18; Pulse Ox 100% on R/A; ea 07:21 BP 119 / 74; Pulse 53; Resp 18; Pulse Ox 99% ; sv 08:04 BP 110 / 73; Pulse 55; Resp 16; Pulse Ox 99% ; sv 04:48 Body Mass Index 26.45 (63.50 kg, 154.94 cm) bb ED Course: 04:34 Patient arrived in ED. ds1 04:35 Clementine Bhagat MD is Private Physician. ds1 04:39 Tc Zarate MD is Attending Physician. pkl 04:40 Patient has correct armband on for positive identification. Bed in low position. Call aa1 light in reach. Pulse ox on. NIBP on. 04:48 Triage completed. bb 04:48 Arm band placed on Patient placed in an exam room, on a stretcher, on pulse oximetry. bb 04:54 Piper Mckeon RN is Primary Nurse. aa1 05:12 Urine collected: clean catch specimen. aa1 05:[address] via stretcher. eh 05:[address] via wheelchair. eh 05:24 CT completed. Patient tolerated procedure well. Patient moved back from CT. eh 05:31 CT Head C Spine In Process Unspecified. EDMS 08:03 No provider procedures requiring assistance completed. Patient did not have IV access sv during this emergency room visit. Administered Medications: 05:07 Drug: Antivert 25 mg Route: PO; ea 07:19 Follow up: Response: No adverse reaction sv Outcome: 06:58 Discharge ordered by . pkl 08:03 Discharged to home ambulatory. sv 08:03 Condition: stable 08:03 Discharge instructions given to patient, Instructed on discharge instructions, follow up and referral plans. no drinking with medication, no driving heavy equipment, medication usage, Demonstrated understanding of instructions, follow-up care, medications, Prescriptions given X 2. 08:05 Patient left the ED. sv Signatures: Dispatcher [employer] EDMS Leslie Childs RN RN sv Piper Mckeon RN RN aa1 Tc Zarate MD MD pkFran Alcantara Mouna Messina ds1 Marla Carter, RN RN bb Brynn Davidson, RN RN ea
--- NOTE | 2017-12-24 11:05 | RAD REPORT ---
EXAM DESCRIPTION: CT - CTHCSPWOC - 12/24/2017 10:46 am CLINICAL HISTORY: Headache, neck pain, history of falls A preliminary written report was provided at the time of the study, and the report was reviewed prio r to final dictation. COMPARISON: CT imaging January 2017 TECHNIQUE: Axial 5 mm thick images of the head were obtained. Axial 2 mm thick images of the cervic al spine were obtained with sagittal and coronal reconstruction images generated and reviewed. All CT scans are performed using dose optimization technique as appropriate and may include automated exposure control or mA/KV adjustment according to patient size. FINDINGS: No intracranial hemorrhage, mass, edema or acute intracranial finding. No suspicion for acute infarct ion. No extra-axial fluid collections. Mastoid air cells and paranasal sinuses are clear. No globe or orbit abnormality seen. Cervical body height and alignment are normal. No disk space narrowing. No fracture or acute bony abn ormality. No paraspinal mass or hematoma. IMPRESSION: Negative CT head examination for acute or significant finding. Negative CT cervical spine examination for acute or significant finding.
== END 2017-12-24 08:05 | disposition home or self-care (01) ==
LOC: ER 04:34
DX: H83.09 Labyrinthitis, unspecified ear (principal); R51 Headache; M54.2 Cervicalgia
CPT/HCPCS: 70450; 72125; 81003; 81025; 99284

== ENCOUNTER 2018-06-24 19:06 | Emergency (ER) | payer OTHER ==
--- OUTSIDE RECORDS SUMMARY | 2018-06-24 19:08 | XMS REPORT ---
:1990 [facility] Address [address] [place] [address] [address]. [address] [place] [address] Care Team Providers Name Role Phone Unavailable Unavailable Unavailable Problems This patient has no known problems. Allergies, Adverse Reactions, Alerts This patient has no known allergies or adverse reactions. Medications This patient has no known medications.
--- OUTSIDE RECORDS SUMMARY | 2018-06-24 19:08 | XMS REPORT ---
:1990 Author Organization [employer] Care Team Providers Name Role Phone Magdijaye Clementine Provider Role Unavailable Allergies, Adverse Reactions, Alerts Substance Reaction Event Type N.K.D.A. Info Not Available Non Drug Allergy Problems Problem Type Condition Code Onset Dates Condition Status Assessment Neck pain M54.2 Active Problem Depression F32.9 Active Problem Other chronic pain G89.29 Active Problem Lumbago with sciatica, right side M54.41 Active Problem Neck pain M54.2 Active Problem Anxiety F41.9 Active Problem Asthma J45.909 Active Problem Nonintractable headache, R51 Active unspecified chronicity pattern, unspecified headache type Problem Migraines G43.909 Active Assessment Other chronic pain G89.29 Active Assessment Lumbago with sciatica, right side M54.41 Active Assessment Follow-up exam Z09 Active Assessment Nonintractable headache, R51 Active unspecified chronicity pattern, unspecified headache type Medications Medication Code System Code Instructions Start End Date Status Dosage Date Robaxin-750 [facility] [id number] 750 MG Orally December 30, Jan 29, Active 1 tablet Twice daily 2017 2017 as needed for muscle cramps/hol[place] n Results No Known Results Summary Purpose [employer] Submission
--- NOTE | 2018-06-24 19:59 | RAD REPORT ---
EXAM DESCRIPTION: CT - CTHCSPWOC - 06/24/2018 7:48 pm CLINICAL HISTORY: Blunt force trauma, head and neck injury COMPARISON: CT head and cervical November 2017 TECHNIQUE: Axial 5 mm thick images of the head were obtained. Axial 2 mm thick images of the cervic al spine were obtained with sagittal and coronal reconstruction images generated and reviewed. All CT scans are performed using dose optimization technique as appropriate and may include automated exposure control or mA/KV adjustment according to patient size. FINDINGS: No intracranial hemorrhage, mass, edema or acute intracranial finding. Ventricles are norm al. No extra-axial fluid collections. Mastoid air cells and paranasal sinuses are clear. No globe or orbit abnormality seen. Cervical body height and alignment are normal. No disk space narrowing. No fracture or acute bony abn ormality. No paraspinal mass or hematoma. IMPRESSION: Negative CT head examination for acute or significant finding. Negative CT cervical spine examination for acute or significant finding.
[2018-06-24 20:03] LABS: Urine Blood 1+ (NEG); Urine Glucose NEGATIVE (NEG); Urine Protein NEGATIVE (NEG)
--- NOTE | 2018-06-24 20:23 | ER ---
Nurse's Notes [facility] Name: Nehal Hudson Age: 27 yrs Sex: Female : 1990 Arrival Date: 06/24/2018 Time: 19:09 Bed 26 Private MD: Clementine Bhagat Diagnosis: Superficial injury of head Presentation: 06/24 19:24 Presenting complaint: Patient states: Was struck in the top of head with hammer when aj removing a nail from sheet rock today at 1500. Denies LOC. No abrasion or swelling noted at this time. Transition of care: patient was not received from another setting of care. Onset of symptoms was June 24, 2018. Risk Assessment: Do you want to hurt yourself or someone else? Patient reports no desire to harm self or others. Initial Sepsis Screen: Does the patient meet any 2 criteria? No. Patient's initial sepsis screen is negative. Does the patient have a suspected source of infection? No. Patient's initial sepsis screen is negative. Care prior to arrival: None. 19:24 Method Of Arrival: Ambulatory aj 19:24 Acuity: AC 4 Triage Assessment: 19:25 General: Appears in no apparent distress. comfortable, Behavior is calm, cooperative, aj appropriate for age. Pain: Complains of pain in top of head and forehead. Neuro: Level of Consciousness is awake, alert, obeys commands, Oriented to person, place, time, situation, Appropriate for age. Respiratory: Airway is patent Respiratory effort is even, unlabored, Respiratory pattern is regular, symmetrical. Derm: Skin is intact, is healthy with good turgor, Skin is pink, warm \T\ dry. normal. 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 - Social history:: Smoking status: Patient/guardian denies using tobacco. - Ebola Screening: : Patient negative for fever greater than or equal to 101.5 degrees Fahrenheit, and additional compatible Ebola Virus Disease symptoms Patient denies exposure to infectious person Patient denies travel to an Ebola-affected area in the 21 days before illness onset No symptoms or risks identified at this time. Screenin:47 Abuse screen: Denies threats or abuse. Denies injuries from another. Nutritional mg2 screening: No deficits noted. Tuberculosis screening: No symptoms or risk factors identified. Fall Risk None identified. Assessment: 19:43 General: Appears in no apparent distress. comfortable, Behavior is calm, cooperative. mg2 Pain: Complains of pain in face and forehead and top of head Pain does not radiate. Pain currently is 3 out of 10 on a pain scale. Quality of pain is described as aching, Pain began gradually, Is intermittent. Neuro: Level of Consciousness is awake, alert, obeys commands, Oriented to person, place, time, situation. Neuro: Reports headache in left frontal area. Cardiovascular: Capillary refill < 3 seconds Patient's skin is warm and dry. Respiratory: Airway is patent Respiratory effort is even, unlabored, Respiratory pattern is regular, symmetrical. GI: No signs and/or symptoms were reported involving the gastrointestinal system. : No signs and/or symptoms were reported regarding the genitourinary system. EENT: No signs and/or symptoms were reported regarding the EENT system. Derm: Skin is intact, is healthy with good turgor, Skin is pink, warm \T\ dry. normal. Musculoskeletal: Circulation, motion, and sensation intact. Capillary refill < 3 seconds. 19:48 Reassessment: patient sent to ct scan. mg2 20:46 Reassessment: Patient appears in no apparent distress at this time. Patient and/or mg2 family updated on plan of care and expected duration. Pain level reassessed. Vital Signs: 19:25 BP 133 / 76; Pulse 76; Resp 19; Temp 98.7; Pulse Ox 100% on R/A; Weight 68.04 kg; aj Height 5 ft. 1 in. (154.94 cm); 20:46 BP 123 / 78; Pulse 78; Resp 18; Pulse Ox 100% on R/A; Pain 2/10; mg2 19:25 Body Mass Index 28.34 (68.04 kg, 154.94 cm) aj Joelle Coma Score: 20:00 Eye Response: spontaneous(4). Verbal Response: oriented(5). Motor Response: obeys pm1 commands(6). Total: 15. ED Course: 19:09 Patient arrived in ED. ds1 19:10 Tashi Garza MD is Private Physician. ds1 19:10 Clementine Bhagat MD is Private Physician. ds1 19:25 Triage completed. aj 19:25 Arm band placed on right wrist. Patient placed in an exam room. aj 19:30 Dony Whaley NP is PHCP. pm1 19:30 Shantanu Frank MD is Attending Physician. pm1 19:30 Jayden Kim, CHRISTIE is Primary Nurse. mg2 19:[address] via wheelchair. jg6 19:46 CT completed. Patient tolerated procedure well. Patient moved back from CT. nj 19:47 No provider procedures requiring assistance completed. Patient did not have IV access mg2 during this emergency room visit. 19:48 Patient has correct armband on for positive identification. mg2 19:50 CT Head C Spine In Process Unspecified. EDMS Administered Medications: No medications were administered Outcome: 20:23 Discharge ordered by MD. pm1 20:46 Discharged to home ambulatory, with family. mg2 20:46 Condition: stable 20:46 Discharge instructions given to patient, family, Instructed on discharge instructions, follow up and referral plans. medication usage, Demonstrated understanding of instructions, follow-up care, medications, Prescriptions given X 1. 20:46 Patient left the ED. mg2 Signatures: Dispatcher [employer] EDMS Peg Lozano, RN Mouna Murray ds1 Dony Whaley, SCAR CONSUMER SCIENCE TEACHER pm1 Biju Camacho nj Jayden Kim RN RN [facility] Rakel Hernández jg
--- NOTE | 2018-06-24 20:23 | EDPHYS ---
Physician Documentation [facility] Name: Nehal Hudson Age: 27 yrs Sex: Female : 1990 Arrival Date: 06/24/2018 Time: 19:09 Bed 26 Private MD: Clementine Bhagat ED Physician Shantanu Frank HPI: 06/24 20:00 This 27 yrs old Female presents to ER via Ambulatory with complaints of Head pm1 Injury. 20:00 The patient or guardian reports pain, swelling. The complaints affect the left frontal pm1 area. Context of injury: The problem was sustained at home, resulted from accidentally hit on head by hammer handle. Onset: The symptoms/episode began/occurred just prior to arrival. Associated signs and symptoms: Loss of consciousness: This patient did not experience any loss of consciousness. Pertinent positives: dazed, headache, Pertinent negatives: the patient has not experienced a loss of conciousness, double vision, neck pain, vomiting. Severity of symptoms: in the emergency department the symptoms are unchanged. The patient has not experienced similar symptoms in the past. The patient has not recently seen a physician. Patient was standing on a ladder helping her remove a nail. was pulling out the nail from the ceiling and when he yanked out the nail the hammer, he accidentally hit the patient on the head with the handle. Patient got dazed but did not lose consciousness. no vomiting or neck pain. +headache. . 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 - Social history:: Smoking status: Patient/guardian denies using tobacco. - Ebola Screening: : Patient negative for fever greater than or equal to 101.5 degrees Fahrenheit, and additional compatible Ebola Virus Disease symptoms Patient denies exposure to infectious person Patient denies travel to an Ebola-affected area in the 21 days before illness onset No symptoms or risks identified at this time. ROS: 20:00 Constitutional: Negative for fever, chills, and weight loss, Eyes: Negative for injury, pm1 pain, redness, and discharge, ENT: Negative for injury, pain, and discharge, Neck: Negative for injury, pain, and swelling, Cardiovascular: Negative for chest pain, palpitations, and edema, Respiratory: Negative for shortness of breath, cough, wheezing, and pleuritic chest pain, Abdomen/GI: Negative for abdominal pain, nausea, vomiting, diarrhea, and constipation, Back: Negative for injury and pain, : Negative for injury, bleeding, discharge, and swelling, MS/Extremity: Negative for injury and deformity, Skin: Negative for injury, rash, and discoloration. 20:00 Neuro: Positive for headache, Negative for dizziness, loss of consciousness, numbness, tingling, weakness. Exam: 20:00 Constitutional: This is a well developed, well nourished patient who is awake, alert, pm1 and in no acute distress. Eyes: Pupils equal round and reactive to light, extra-ocular motions intact. Lids and lashes normal. Conjunctiva and sclera are non-icteric and not injected. Cornea within normal limits. Periorbital areas with no swelling, redness, or edema. ENT: Nares patent. No nasal discharge, no septal abnormalities noted. Tympanic membranes are normal and external auditory canals are clear. Oropharynx with no redness, swelling, or masses, exudates, or evidence of obstruction, uvula midline. Mucous membranes moist. Neck: Trachea midline, no thyromegaly or masses palpated, and no cervical lymphadenopathy. Supple, full range of motion without nuchal rigidity, or vertebral point tenderness. No Meningismus. Chest/axilla: Normal chest wall appearance and motion. Nontender with no deformity. No lesions are appreciated. 20:00 Cardiovascular: Regular rate and rhythm with a normal S1 and S2. No gallops, murmurs, or rubs. Normal PMI, no JVD. No pulse deficits. Respiratory: Lungs have equal breath sounds bilaterally, clear to auscultation and percussion. No rales, rhonchi or wheezes noted. No increased work of breathing, no retractions or nasal flaring. Abdomen/GI: Soft, non-tender, with normal bowel sounds. No distension or tympany. No guarding or rebound. No evidence of tenderness throughout. Back: No spinal tenderness. No costovertebral tenderness. Full range of motion. Skin: Warm, dry with normal turgor. Normal color with no rashes, no lesions, and no evidence of cellulitis. MS/ Extremity: Pulses equal, no cyanosis. Neurovascular intact. Full, normal range of motion. 20:00 Head/face: Noted is no obvious of injury or deformity except contusion, that is superficial, of the left frontal area. 20:00 Neuro: Orientation: is normal, Motor: is normal, Sensation: is normal, no obvious gross deficits, Gait: is steady, at a normal pace, without difficulty. Vital Signs: 19:25 BP 133 / 76; Pulse 76; Resp 19; Temp 98.7; Pulse Ox 100% on R/A; Weight 68.04 kg; aj Height 5 ft. 1 in. (154.94 cm); 20:46 BP 123 / 78; Pulse 78; Resp 18; Pulse Ox 100% on R/A; Pain 2/10; mg2 19:25 Body Mass Index 28.34 (68.04 kg, 154.94 cm) aj Joelle Coma Score: 20:00 Eye Response: spontaneous(4). Verbal Response: oriented(5). Motor Response: obeys pm1 commands(6). Total: 15. MDM: 19:31 Patient medically screened. pm1 20:21 Data reviewed: vital signs. Data interpreted: Pulse oximetry: on room air is 100 %. pm1 Interpretation: normal. Counseling: I had a detailed discussion with the patient and/or guardian regarding: the historical points, exam findings, and any diagnostic results supporting the discharge/admit diagnosis, radiology results, the need for outpatient follow up, to return to the emergency department if symptoms worsen or persist or if there are any questions or concerns that arise at home. 06/24 19:53 Order name: Urine Dipstick--Ancillary (enter results); Complete Time: 20:21 gm 06/24 19:53 Order name: Urine --Ancillary (enter results); Complete Time: 20:21 gm 06/24 19:35 Order name: CT Head C Spine; Complete Time: 20:21 pm1 06/24 19:35 Order name: Urine Dipstick-Ancillary (obtain specimen); Complete Time: 19:42 pm1 06/24 19:35 Order name: Urine Test (obtain specimen); Complete Time: 19:41 pm1 Administered Medications: No medications were administered Disposition: 06/24/18 20:23 Discharged to Home. Impression: Superficial injury of head. - Condition is Stable. - Discharge Instructions: Head Injury, Adult. - Prescriptions for Tylenol- Codeine #3 300-30 mg Oral Tablet - take 2 tablets by ORAL route every 6 hours As needed; 20 tablet. - Medication Reconciliation Form, Thank You Letter form. - Follow up: Emergency Department; When: As needed; Reason: Worsening of condition. Follow up: Private Physician; When: 2 - 3 days; Reason: Recheck today's complaints, Continuance of care, Re-evaluation by your physician. - Problem is new. - Symptoms have improved. Addendum: 06/27/2018 07:14 Co-signature as Attending Physician, Shantanu Frank MD. r n Signatures: Dispatcher [employer] EDMS Peg Lozano RN RN Shantanu Nino MD MD rn Marinas, Patrick, LEASE ADMINISTRATION ANALYST LEASE ADMINISTRATION ANALYST pm1 Jayden Kim RN RN mg2 Corrections: (The following items were deleted from the chart) 06/24 20:46 20:23 06/24/2018 20:23 Discharged to Home. Impression: Superficial injury of head. mg2 Condition is Stable. Forms are Medication Reconciliation Form, Thank You Letter, Antibiotic Education, Prescription Opioid Use. Follow up: Emergency Department; When: As needed; Reason: Worsening of condition. Follow up: Private Physician; When: 2 - 3 days; Reason: Recheck today's complaints, Continuance of care, Re-evaluation by your physician. Problem is new. Symptoms have improved. pm1
[2018-06-24] MEDS ORDERED: IBUPROFEN 400 MG TAB ONE (20:52)
== END 2018-06-24 20:46 | disposition home or self-care (01) ==
LOC: ER 19:06
DX: S00.90XA Unspecified superficial injury of unspecified part of head, initial encounter (principal); W22.8XXA Striking against or struck by other objects, initial encounter; Y93.89 Activity, other specified; Y92.009 Unspecified place in unspecified non-institutional (private) residence as the place of occurrence of the external cause
CPT/HCPCS: 70450; 72125; 81003; 81025; 99284

== ENCOUNTER 2018-09-10 23:10 | Emergency (ER) | payer OTHER ==
--- OUTSIDE RECORDS SUMMARY | 2018-09-10 23:13 | XMS REPORT ---
:1990 Author Organization eClinicalWorks Care Team Providers Name Role Phone Clementine Bhagat Provider Role Unavailable Allergies, Adverse Reactions, Alerts Substance Reaction Event Type N.K.D.A. Info Not Available Non Drug Allergy Problems Problem Type Condition Code Onset Dates Condition Status Problem Depression F32.9 Active Problem Anxiety F41.9 Active Problem Asthma J45.909 Active Assessment History of migraine headaches Z86.69 Active Assessment Nonintractable headache, R51 Active unspecified chronicity pattern, unspecified headache type Assessment Superficial head injury, S00.90XD Active subsequent encounter Assessment Follow-up exam Z09 Active Problem Superficial head injury, S00.90XD Active subsequent encounter Problem Nonintractable headache, R51 Active unspecified chronicity pattern, unspecified headache type Problem History of migraine headaches Z86.69 Active Problem Neck pain M54.2 Active Problem Migraines G43.909 Active Problem Other chronic pain G89.29 Active Problem Lumbago with sciatica, right side M54.41 Active Medications No Known Medications Results No Known Results Summary Purpose eClinicalWorks Submission
--- OUTSIDE RECORDS SUMMARY | 2018-09-10 23:13 | XMS REPORT ---
:1990 [facility] Address [address] [place] [address] Dr. Ramirez [address] [place] [id number] Care Team Providers Name Role Phone Unavailable Unavailable Unavailable Problems This patient has no known problems. Allergies, Adverse Reactions, Alerts This patient has no known allergies or adverse reactions. Medications This patient has no known medications.
--- OUTSIDE RECORDS SUMMARY | 2018-09-10 23:13 | XMS REPORT ---
[...] Start End Date Status Dosage Date Robaxin-750 [facility] [id number] 750 MG Orally December 30, Jan 29, Active 1 tablet Twice daily 2017 2017 as needed for muscle cramps/holland n Results No Known Results Summary Purpose eClinicalWorks Submission
--- NOTE | 2018-09-11 00:57 | ER ---
Nurse's Notes [facility] Name: Nehal Hudson Age: 27 yrs Sex: Female : 1990 Arrival Date: 09/10/2018 Time: 23:12 Bed 28 Private MD: Clementine Bhagat Diagnosis: Person with feared health complaint in whom no diagnosis is made; related conditions, unspecified, first trimester Presentation: 09/10 23:42 Presenting complaint: Patient states: SOB for a week now but is worst today. Has a ca1 history of asthma. Has been coughing for days with no nasal congestion or drainage. Chest discomforts during cough. A little light headed at times. Pt also reports of being 7 weeks with confirmation from her OB-GYNE with Ultrasound. Transition of care: patient was not received from another setting of care. Onset of symptoms was September 10, 2018. Risk Assessment: Do you want to hurt yourself or someone else? Patient reports no desire to harm self or others. Initial Sepsis Screen: Does the patient meet any 2 criteria? No. Patient's initial sepsis screen is negative. Does the patient have a suspected source of infection? No. Patient's initial sepsis screen is negative. Care prior to arrival: None. 23:42 Method Of Arrival: Ambulatory ca1 23:42 Acuity: AC 3 ca1 Triage Assessment: 23:46 General: Appears in no apparent distress. comfortable, Behavior is calm, cooperative, ca1 appropriate for age. Pain: Denies pain. 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 - Social history:: Smoking status: Patient/guardian denies using tobacco. - Ebola Screening: : No symptoms or risks identified at this time. Screenin:47 Abuse screen: Denies threats or abuse. Denies injuries from another. Nutritional ca1 screening: No deficits noted. Tuberculosis screening: No symptoms or risk factors identified. Fall Risk None identified. Assessment: 23:47 General: Appears in no apparent distress. comfortable, Behavior is calm, cooperative, ca1 appropriate for age. Pain: Denies pain. Neuro: Level of Consciousness is awake, alert, obeys commands, Oriented to person, place, time, situation. Cardiovascular: Heart tones S1 S2 present Capillary refill < 3 seconds Patient's skin is warm and dry. Respiratory: Airway is patent Respiratory effort is even, unlabored, Respiratory pattern is regular, symmetrical, Breath sounds are clear bilaterally. GI: Abdomen is round non-distended, Bowel sounds present X 4 quads. Abd is soft and non tender X 4 quads. : No deficits noted. No signs and/or symptoms were reported regarding the genitourinary system. EENT: No deficits noted. No signs and/or symptoms were reported regarding the EENT system. Derm: Skin is intact, is healthy with good turgor, Skin is pink, warm \T\ dry. Musculoskeletal: Circulation, motion, and sensation intact. Capillary refill < 3 seconds. Vital Signs: 23:46 BP 123 / 69; Pulse 74; Resp 17 S; Temp 97.6; Pulse Ox 100% on R/A; Weight 68.04 kg; ca1 Height 5 ft. 1 in. (154.94 cm); Pain 0/10; 09/11 00:18 BP 106 / 60; Pulse 61; Resp 19 S; Pulse Ox 100% on R/A; ca1 01:17 BP 111 / 69; Pulse 68; Resp 18; Pulse Ox 100% on R/A; Pain 0/10; mg2 09/10 23:46 Body Mass Index 28.34 (68.04 kg, 154.94 cm) ca1 ED Course: 09/10 23:12 Patient arrived in ED. do 23:12 Clementine Bhagat MD is Private Physician. do 23:45 Triage completed. ca1 23:45 Jayden Kim, CHRISTIE is Primary Nurse. mg2 23:46 Arm band placed on right wrist. ca1 23:47 Patient has correct armband on for positive identification. Placed in gown. Bed in low ca1 position. Call light in reach. Side rails up X 1. Pulse ox on. NIBP on. Warm blanket given. 23:57 [facility]C [facility] snw 23:57 Ludwig Bautista MD is Attending Physician. snw 23:59 No provider procedures requiring assistance completed. Patient did not have IV access mg2 during this emergency room visit. 09/11 00:54 Clementine Bhagat MD is Referral Physician. snw Administered Medications: No medications were administered Outcome: 00:56 Discharge ordered by . snw 01:18 Discharged to home ambulatory. mg2 01:18 Condition: stable 01:18 Discharge instructions given to patient, Instructed on discharge instructions, follow up and referral plans. Demonstrated understanding of instructions, follow-up care. 01:18 Patient left the ED. mg2 Signatures: Diane Sosa, EXPLORATION GEOLOGIST-C EXPLORATION GEOLOGIST-Csnw Michelle Coulter Michele, RN RN mg2 Bhavani Swann RN RN ca1
--- NOTE | 2018-09-11 00:57 | EDPHYS ---
Physician Documentation [facility] Name: Nehal Hudson Age: 27 yrs Sex: Female : 1990 Arrival Date: 09/10/2018 Time: 23:12 Bed 28 Private MD: Clementine Bhagat ED Physician Ludwig Bautista HPI: 09/11 03:45 This 27 yrs old Female presents to ER via Ambulatory with complaints of snw Asthma Exacerbation. 03:31 The patient presents to the emergency department with wheezing, Current therapy: None, snw that began , the patient was reported to have asthma. Onset: The symptoms/episode began/occurred gradually. Associated signs and symptoms: The patient has no apparent associated signs or symptoms. Severity of symptoms: At their worst the symptoms were mild. It is unknown whether or not the patient has had similar symptoms in the past. IUP confirmed per MD in [facility] office, pt going to see Dr. Zarate (Stage Settings Painter) for this . encouraged pt to f/u for eval of thyroid, , and to be sure to discuss with athletic field custodian axillary nodes to right axilla. Pt's Mother with hx of breast ca. Encouraged pt to continue to be advocate for her healthcare. 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 - Social history:: Smoking status: Patient/guardian denies using tobacco. - Ebola Screening: : No symptoms or risks identified at this time. ROS: 09/11 03:30 Constitutional: Negative for fever, chills, and weight loss, Eyes: Negative for injury, snw pain, redness, and discharge, ENT: Negative for injury, pain, and discharge, Neck: Negative for injury, pain, and swelling, Cardiovascular: Negative for chest pain, palpitations, and edema, Abdomen/GI: Negative for abdominal pain, nausea, vomiting, diarrhea, and constipation, Back: Negative for injury and pain, : Negative for injury, bleeding, discharge, and swelling, MS/Extremity: Negative for injury and deformity, Skin: Negative for injury, rash, and discoloration, Neuro: Negative for headache, weakness, numbness, tingling, and seizure. Respiratory: Positive for "asthma". Exam: 03:27 Constitutional: This is a well developed, well nourished patient who is awake, alert, snw and in no acute distress. Head/Face: Normocephalic, atraumatic. Eyes: Pupils equal round and reactive to light, extra-ocular motions intact. Lids and lashes normal. Conjunctiva and sclera are non-icteric and not injected. Cornea within normal limits. Periorbital areas with no swelling, redness, or edema. ENT: Nares patent. No nasal discharge, no septal abnormalities noted. Tympanic membranes are normal and external auditory canals are clear. Oropharynx with no redness, swelling, or masses, exudates, or evidence of obstruction, uvula midline. Mucous membranes moist. Neck: Trachea midline, no thyromegaly or masses palpated, and no cervical lymphadenopathy. Supple, full range of motion without nuchal rigidity, or vertebral point tenderness. No Meningismus. Chest/axilla: Normal chest wall appearance and motion. Nontender with no deformity. No lesions are appreciated. Mild lymph node enlargement in right axilla. Pt state this has gotten a little worse since her (7 weeks) Cardiovascular: Regular rate and rhythm with a normal S1 and S2. No gallops, murmurs, or rubs. Normal PMI, no JVD. No pulse deficits. Respiratory: Lungs have equal breath sounds bilaterally, clear to auscultation and percussion. No rales, rhonchi or wheezes noted. No increased work of breathing, no retractions or nasal flaring. Pt takes exaggerated deep breaths occassionally Abdomen/GI: Soft, non-tender, with normal bowel sounds. No distension or tympany. No guarding or rebound. No evidence of tenderness throughout. Back: No spinal tenderness. No costovertebral tenderness. Full range of motion. Skin: Warm, dry with normal turgor. Normal color with no rashes, no lesions, and no evidence of cellulitis. MS/ Extremity: Pulses equal, no cyanosis. Neurovascular intact. Full, normal range of motion. Neuro: Awake and alert, GCS 15, oriented to person, place, time, and situation. Cranial nerves II-XII grossly intact. Motor strength 5/5 in all extremities. Sensory grossly intact. Cerebellar exam normal. Normal gait. Psych: Awake, alert, with orientation to person, place and time. Behavior, mood, and affect are within normal limits. Vital Signs: 09/10 23:46 BP 123 / 69; Pulse 74; Resp 17 S; Temp 97.6; Pulse Ox 100% on R/A; Weight 68.04 kg; ca1 Height 5 ft. 1 in. (154.94 cm); Pain 0/10; 09/11 00:18 BP 106 / 60; Pulse 61; Resp 19 S; Pulse Ox 100% on R/A; ca1 01:17 BP 111 / 69; Pulse 68; Resp 18; Pulse Ox 100% on R/A; Pain 0/10; mg2 09/10 23:46 Body Mass Index 28.34 (68.04 kg, 154.94 cm) ca1 MDM: 00:05 Patient medically screened. snw 03:29 Data reviewed: vital signs, nurses notes. Data interpreted: Pulse oximetry: on room air snw is 100 %. Interpretation: normal. Counseling: I had a detailed discussion with the patient and/or guardian regarding: the historical points, exam findings, and any diagnostic results supporting the discharge/admit diagnosis, the need for outpatient follow up, to return to the emergency department if symptoms worsen or persist or if there are any questions or concerns that arise at home. Special discussion: Based on the history and exam findings, there is no indication for further emergent testing or inpatient evaluation. I discussed with the patient/guardian the need to see the OB Gyne specialist for further evaluation of the symptoms. I discussed with the patient/guardian the need to see the primary care provider for further evaluation of the symptoms. Administered Medications: No medications were administered Disposition: 06:04 Co-signature as Attending Physician, Ludwig Bautista MD I agree with the assessment and tw4 plan of care. Disposition: 09/11/18 00:56 Discharged to Home. Impression: Person with feared health complaint in whom no diagnosis is made, related conditions, unspecified, first trimester. - Condition is Stable. - Discharge Instructions: First Trimester of , Rehydration, Adult. - Medication Reconciliation Form, Thank You Letter, Antibiotic Education, Prescription Opioid Use form. - Follow up: Clementine Bhagat MD; When: 1 - 2 days; Reason: Recheck today's complaints, Continuance of care, Re-evaluation by your physician. Follow up: Emergency Department; When: As needed; Reason: Worsening of condition. Follow up: Private Physician; When: 2 - 3 days; Reason: Recheck today's complaints, Continuance of care. Signatures: Diane Sosa, RN CLINICAL QUALITY-C RN CLINICAL QUALITY-Csnw Ludwig Bautista MD MD tw4 Jayden Kim, RN RN mg2 Bhavani Swann RN RN ca1 Corrections: (The following items were deleted from the chart) 01:18 00:56 09/11/2018 00:56 Discharged to Home. Impression: Person with feared health mg2 complaint in whom no diagnosis is made; related conditions, unspecified, first trimester. Condition is Stable. Forms are Medication Reconciliation Form, Thank You Letter, Antibiotic Education, Prescription Opioid Use. Follow up: Clementine Bhagat; When: 1 - 2 days; Reason: Recheck today's complaints, Continuance of care, Re-evaluation by your physician. Follow up: Emergency Department; When: As needed; Reason: Worsening of condition. Follow up: Private Physician; When: 2 - 3 days; Reason: Recheck today's complaints, Continuance of care. snw
== END 2018-09-11 01:18 | disposition home or self-care (01) ==
LOC: ER 23:10
DX: Z71.1 Person with feared health complaint in whom no diagnosis is made (principal)
CPT/HCPCS: 99283

== ENCOUNTER 2018-09-20 21:09 | Emergency (ER) | payer OTHER ==
--- OUTSIDE RECORDS SUMMARY | 2018-09-20 21:11 | XMS REPORT ---
:1990 [facility] Address [address] [place] [address] Dr. Ramirez [address] [place] [id number] Care Team Providers Name Role Phone Unavailable Unavailable Unavailable Problems This patient has no known problems. Allergies, Adverse Reactions, Alerts This patient has no known allergies or adverse reactions. Medications This patient has no known medications.
--- OUTSIDE RECORDS SUMMARY | 2018-09-20 21:11 | XMS REPORT ---
[...] Start End Date Status Dosage Date Robaxin-750 [facility] [id number] 750 MG Orally December 30, Jan 29, Active 1 tablet Twice daily 2017 2017 as needed for muscle cramps/holland n Results No Known Results Summary Purpose eClinicalWorks Submission
[2018-09-20 21:54] LABS: Absolute Lymphocytes (CBC) 0.7 K/uL (0.7-4.9); Absolute Monocytes 0.3 K/uL (0.1-1.3); Absolute Neutrophil 14.2 K/uL (1.8-8.0); Basophils % 0.1 % (0-1.3); Eosinophils % 0.1 % (0-4.4); Hematocrit 38.6 % (36.0-45.0); Lymphocytes % 4.6 % (15.3-44.8); Monocytes % 2.3 % (3.3-12.3); RBC Red Blood Cell Count 4.57 M/uL (3.86-4.86)
[2018-09-20] MEDS ORDERED: PROMETHAZINE 25 MG/ML VIAL ONE (22:04)
[2018-09-20] MEDS ORDERED: NA CHLORIDE 0.9% 1,000 ML ONE (22:05)
[2018-09-20 22:10] LABS: ALT/SGPT 15 U/L (12-78); AST/SGOT 11 U/L (15-37); Albumin 3.9 g/dL (3.4-5.0); Alkaline Phosphatase 78 U/L (45-117); BUN Blood Urea Nitrogen 10 mg/dL (7-18); Bicarbonate 19 mmol/L (21-32); Bilirubin Direct 0.1 mg/dL (0-0.2); Bilirubin Total 0.5 mg/dL (0.2-1.0); Glucose Level 89 mg/dL (74-106); Lipase 111 U/L (73-393); Potassium 3.2 mmol/L (3.5-5.1); Protein, Total 7.8 g/dL (6.4-8.2); Sodium Level 140 mmol/L (136-145)
[2018-09-20 22:21] LABS: Urine Blood 1+ (NEG); Urine Glucose NEGATIVE (NEG); Urine Protein TRACE (NEG); Urine Specific Gravity 1.025 (1.005-1.030)
[2018-09-20 22:27] LABS: Urine Bacteria <20 /HPF (<20); Urine Culture Reflex Order NOT NEEDED; Urine Mucus 2+ /HPF (NONE SEEN)
[2018-09-20] MEDS ORDERED: ACETAMINOPHEN 500 MG TAB ONE (22:44)
[2018-09-20] MEDS ORDERED: KCL 20 MEQ/100 mL IVPB 20 MEQ/100 ML BAG IV ONE (22:45)
[2018-09-20 23:29] LABS: Blood Morphology Comment NOT SEEN (NOT SEEN); Platelet Estimate ADEQ; Urine White Blood Cell Casts OK
--- NOTE | 2018-09-20 23:49 | ER ---
Nurse's Notes [facility] Name: Nehal Hudson Age: 27 yrs Sex: Female : 1990 Arrival Date: 09/20/2018 Time: 21:12 Bed 15 Private MD: Clementine Bhagat Diagnosis: Vomiting Presentation: 09/20 21:14 Presenting complaint: Patient states: "I started feeling sick about 6:30 this aj1 afternoon, I thought it was just being , but I've been vomiting ever since every 15 minutes or so and stomach cramping and I feel really weak and dehydrated. I can't keep ice chips down" Denies fever. Transition of care: patient was not received from another setting of care. Onset of symptoms was September 20, 2018 at 18:30. Risk Assessment: Do you want to hurt yourself or someone else? Patient reports no desire to harm self or others. Initial Sepsis Screen: Does the patient meet any 2 criteria? No. Patient's initial sepsis screen is negative. Does the patient have a suspected source of infection? No. Patient's initial sepsis screen is negative. Care prior to arrival: None. 21:14 Method Of Arrival: Ambulatory aj 21:14 Acuity: AC 3 aj1 Triage Assessment: 21:15 General: Appears in no apparent distress. uncomfortable, Behavior is calm, cooperative, aj1 appropriate for age. Pain: Complains of pain in abdomen Pain currently is 8 out of 10 on a pain scale. Quality of pain is described as crampy. Neuro: Level of Consciousness is awake, alert, obeys commands, Oriented to person, place, time, situation. Cardiovascular: Patient's skin is warm and dry. Respiratory: Airway is patent Respiratory effort is even, unlabored, Respiratory pattern is regular, symmetrical. GI: Reports nausea, vomiting, Patient currently denies diarrhea. 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 - Social history:: Smoking status: Patient/guardian denies using tobacco. - Ebola Screening: : Patient denies travel to an Ebola-affected area in the 21 days before illness onset. Screenin:37 Abuse screen: Denies threats or abuse. Nutritional screening: No deficits noted. jb4 Tuberculosis screening: No symptoms or risk factors identified. Fall Risk IV access (20 points). Total Blanca Fall Scale indicates No Risk (0-24 pts). Assessment: 21:17 General: Appears in no apparent distress. uncomfortable, Behavior is calm, cooperative, jb4 appropriate for age. Pain: Complains of pain in abdomen Pain does not radiate. Pain currently is 6 out of 10 on a pain scale. Quality of pain is described as crampy. Neuro: Level of Consciousness is awake, alert, obeys commands, Oriented to person, place, time, situation. Cardiovascular: Patient's skin is warm and dry. Respiratory: Airway is patent Respiratory effort is even, unlabored, Respiratory pattern is regular, symmetrical. GI: Reports lower abdominal pain, upper abdominal pain, nausea, vomiting. : No signs and/or symptoms were reported regarding the genitourinary system. EENT: No signs and/or symptoms were reported regarding the EENT system. Derm: Skin is intact, Skin is pink, warm \\T\\ dry. Musculoskeletal: Circulation, motion, and sensation intact. 22:30 Reassessment: Patient appears in no apparent distress at this time. Patient and/or jb4 family updated on plan of care and expected duration. Pain level reassessed. Patient is alert, oriented x 3, equal unlabored respirations, skin warm/dry/pink. Patient states feeling better. 23:30 Reassessment: Patient appears in no apparent distress at this time. Patient and/or jb4 family updated on plan of care and expected duration. Pain level reassessed. Patient is alert, oriented x 3, equal unlabored respirations, skin warm/dry/pink. 09/21 00:29 Reassessment: Patient appears in no apparent distress at this time. Patient and/or jb4 family updated on plan of care and expected duration. Pain level reassessed. Patient is alert, oriented x 3, equal unlabored respirations, skin warm/dry/pink. Vital Signs: 09/20 21:15 BP 118 / 74; Pulse 104; Resp 18; Temp 97.8; Pulse Ox 100% on R/A; Weight 68.04 kg (R); aj1 Height 5 ft. 1 in. (154.94 cm) (R); Pain 8/10; 22:30 BP 100 / 67; Pulse 96; Resp 16; Pulse Ox 100% on R/A; jb4 23:30 BP 97 / 61; Pulse 85; Resp 16; Pulse Ox 100% on R/A; jb4 09/21 00:21 BP 103 / 61; Pulse 98; Resp 16; Pulse Ox 100% on R/A; jb4 09/20 21:15 Body Mass Index 28.34 (68.04 kg, 154.94 cm) aj1 ED Course: 09/20 21:12 Patient arrived in ED. es 21:12 Clementine Bhagat MD is Private Physician. es 21:15 Triage completed. aj1 21:15 Arm band placed on Patient placed in an exam room. aj1 21:22 Michel Love PA is PHCP. jr8 21:22 Ed Deras MD is Attending Physician. jr8 21:23 Maged Naranjo RN is Primary Nurse. jb4 21:40 Initial lab(s) drawn, by co, sent to lab. Inserted saline lock: 20 gauge in right jb4 antecubital area, using aseptic technique. Blood collected. 22:37 Patient has correct armband on for positive identification. Placed in gown. Bed in low jb4 position. Call light in reach. Side rails up X 1. Pulse ox on. NIBP on. 09/21 00:26 No provider procedures requiring assistance completed. IV discontinued, intact, jb4 bleeding controlled. Administered Medications: 09/20 21:58 Drug: Promethazine 12.5 mg Route: IVP; Site: right antecubital; jb4 23:50 Follow up: Response: No adverse reaction; Nausea is decreased; Vomiting decreased jb4 22:03 Drug: NS 0.9% 1000 ml Route: IV; Rate: 1000 ml; Site: right antecubital; jb4 23:41 Follow up: Response: No adverse reaction; IV Status: Completed infusion; IV Intake: jb4 1000ml 22:36 Drug: Tylenol 1000 mg Route: PO; jb4 23:50 Follow up: Response: No adverse reaction; Pain is decreased jb4 22:41 Drug: Potassium Chloride 20 mEq Route: IV; Rate: calculated rate; Site: right jb4 antecubital; 23:41 Follow up: Response: No adverse reaction; IV Status: Completed infusion; IV Intake: jb4 100ml 09/21 00:10 Drug: Phenergan 12.5 mg Route: IVP; Site: right antecubital; jb4 00:27 Follow up: Response: No adverse reaction; Nausea is decreased; Vomiting decreased jb4 Intake: 09/20 23:41 IV: 100ml; Total: 100ml. jb4 23:41 IV: 1000ml; Total: 1100ml. jb4 Outcome: 23:48 Discharge ordered by MD. yu 04 00:26 Discharged to home ambulatory. jb4 Condition: stable Discharge instructions given to patient, Instructed on discharge instructions, follow up and referral plans. medication usage, Demonstrated understanding of instructions, follow-up care, medications, Prescriptions given X 1. 00:38 Patient left the ED. jb4 Signatures: Cheli Hall RN RN aj1 Vesna Jolley Josh, PA PA jr8 Maged Naranjo RN RN jb4
--- NOTE | 2018-09-20 23:49 | EDPHYS ---
Physician Documentation [facility] Name: Nehal Hudson Age: 27 yrs Sex: Female : 1990 Arrival Date: 09/20/2018 Time: 21:12 Bed 15 Private MD: Clementine Bhagat ED Physician Ed Deras HPI: 09/20 22:15 This 27 yrs old Female presents to ER via Ambulatory with complaints of jr8 Vomiting, Abdominal Pain, 9 WKS PREG. 22:15 The patient presents to the emergency department with nausea, vomiting, abdominal pain. jr8 Onset: The symptoms/episode began/occurred acutely, today. Possible causes: unknown. The symptoms are aggravated by food , The symptoms are alleviated by nothing. Associated signs and symptoms: The patient has no apparent associated signs or symptoms. Severity of symptoms: At their worst the symptoms were moderate in the emergency department the symptoms are unchanged. The patient has not experienced similar symptoms in the past. The patient has not recently seen a physician. Patient stated that she started to have n/v earlier today with intermittent epigastric discomfort. Has not been able to hold any food or fluids down. Now having lower pelvic cramping. Denies spotting or bleeding. Approximately 9 weeks . Mild body aches. Denies urine complaints or any other symptoms currently . 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 - Social history:: Smoking status: Patient/guardian denies using tobacco. - Ebola Screening: : Patient denies travel to an Ebola-affected area in the 21 days before illness onset. ROS: 22:15 Eyes: Negative for injury, pain, redness, and discharge, ENT: Negative for injury, jr8 pain, and discharge, Neck: Negative for injury, pain, and swelling, Cardiovascular: Negative for chest pain, palpitations, and edema, Respiratory: Negative for shortness of breath, cough, wheezing, and pleuritic chest pain, Back: Negative for injury and pain, MS/Extremity: Negative for injury and deformity, Skin: Negative for injury, rash, and discoloration, Neuro: Negative for headache, weakness, numbness, tingling, and seizure. 22:15 Abdomen/GI: Positive for nausea and vomiting, abdominal cramps, Negative for diarrhea, abdominal distension, anorexia, dysphagia, hematemesis, black/tarry stool, rectal pain, rectal bleeding, bowel incontinence, flatulence. Exam: 22:15 Eyes: Pupils equal round and reactive to light, extra-ocular motions intact. Lids and jr8 lashes normal. Conjunctiva and sclera are non-icteric and not injected. Cornea within normal limits. Periorbital areas with no swelling, redness, or edema. ENT: Nares patent. No nasal discharge, no septal abnormalities noted. Tympanic membranes are normal and external auditory canals are clear. Oropharynx with no redness, swelling, or masses, exudates, or evidence of obstruction, uvula midline. Mucous membranes moist. Neck: Trachea midline, no thyromegaly or masses palpated, and no cervical lymphadenopathy. Supple, full range of motion without nuchal rigidity, or vertebral point tenderness. No Meningismus. Cardiovascular: Regular rate and rhythm with a normal S1 and S2. No gallops, murmurs, or rubs. Normal PMI, no JVD. No pulse deficits. Respiratory: Lungs have equal breath sounds bilaterally, clear to auscultation and percussion. No rales, rhonchi or wheezes noted. No increased work of breathing, no retractions or nasal flaring. Abdomen/GI: Soft, non-tender, with normal bowel sounds. No distension or tympany. No guarding or rebound. No evidence of tenderness throughout. Back: No spinal tenderness. No costovertebral tenderness. Full range of motion. Skin: Warm, dry with normal turgor. Normal color with no rashes, no lesions, and no evidence of cellulitis. MS/ Extremity: Pulses equal, no cyanosis. Neurovascular intact. Full, normal range of motion. Neuro: Awake and alert, GCS 15, oriented to person, place, time, and situation. Cranial nerves II-XII grossly intact. Motor strength 5/5 in all extremities. Sensory grossly intact. Cerebellar exam normal. Normal gait. Vital Signs: 21:15 BP 118 / 74; Pulse 104; Resp 18; Temp 97.8; Pulse Ox 100% on R/A; Weight 68.04 kg (R); aj1 Height 5 ft. 1 in. (154.94 cm) (R); Pain 8/10; 22:30 BP 100 / 67; Pulse 96; Resp 16; Pulse Ox 100% on R/A; jb4 23:30 BP 97 / 61; Pulse 85; Resp 16; Pulse Ox 100% on R/A; jb4 09/21 00:21 BP 103 / 61; Pulse 98; Resp 16; Pulse Ox 100% on R/A; jb4 09/20 21:15 Body Mass Index 28.34 (68.04 kg, 154.94 cm) aj1 MDM: 09/20 21:37 Patient medically screened. jr8 23:47 Data reviewed: vital signs, nurses notes, lab test result(s), and as a result, I will jr8 discharge patient. Data interpreted: Pulse oximetry: on room air is 100 %. Interpretation: normal. Counseling: I had a detailed discussion with the patient and/or guardian regarding: the historical points, exam findings, and any diagnostic results supporting the discharge/admit diagnosis, lab results, the need for outpatient follow up, a family practitioner, an OB/Gyne specialist, to return to the emergency department if symptoms worsen or persist or if there are any questions or concerns that arise at home. Response to treatment: the patient's symptoms have markedly improved after treatment, patient is well hydrated. ED course: Patients cramping improved. Reexamined abd with no acute finding. Return precautions given. Patient good with treatment plan and course and will follow up or come back . 09/20 21:41 Order name: Basic Metabolic Panel; Complete Time: 22:18 09/20 21:41 Order name: CBC with Diff; Complete Time: 23:30 [facility] 09/20 21:41 Order name: Hepatic Function; Complete Time: 22:18 09/20 21:41 Order name: Lipase; Complete Time: 22:18 09/20 21:42 Order name: Urine Microscopic Only; Complete Time: 22:40 09/20 22:19 Order name: Urine Dipstick--Ancillary (enter results) 09/20 22:19 Order name: Urine --Ancillary (enter results) 09/20 22:19 Order name: Urine Dipstick-Ancillary; Complete Time: 22:21 [facility] 09/20 22:19 Order name: Urine --Ancillary; Complete Time: 22:21 [facility] 09/20 23:29 Order name: CBC Smear Scan; Complete Time: 23:30 [facility] 09/20 21:41 Order name: IV Saline Lock; Complete Time: 21:51 [facility] 09/20 21:41 Order name: Labs collected and sent; Complete Time: :51 [facility] 09/20 21:42 Order name: Urine Test (obtain specimen); Complete Time: 22:26 8 09/20 21:42 Order name: Urine Dipstick-Ancillary (obtain specimen); Complete Time: : [facility] Administered Medications: 21:58 Drug: Promethazine 12.5 mg Route: IVP; Site: right antecubital; jb4 23:50 Follow up: Response: No adverse reaction; Nausea is decreased; Vomiting decreased [facility] 22:03 Drug: NS 0.9% 1000 ml Route: IV; Rate: 1000 ml; Site: right antecubital; jb4 23:41 Follow up: Response: No adverse reaction; IV Status: Completed infusion; IV Intake: jb4 1000ml 22:36 Drug: Tylenol 1000 mg Route: PO; jb4 23:50 Follow up: Response: No adverse reaction; Pain is decreased jb4 22:41 Drug: Potassium Chloride 20 mEq Route: IV; Rate: calculated rate; Site: right [facility] antecubital; 23:41 Follow up: Response: No adverse reaction; IV Status: Completed infusion; IV Intake: jb4 100ml 09/21 00:10 Drug: Phenergan 12.5 mg Route: IVP; Site: right antecubital; jb4 00:27 Follow up: Response: No adverse reaction; Nausea is decreased; Vomiting decreased jb4 Disposition: 09/20/18 23:48 Discharged to Home. Impression: Vomiting. - Condition is Stable. - Discharge Instructions: Nausea and Vomiting, Adult. - Prescriptions for promethazine 25 mg Oral Tablet - take 1 tablet by ORAL route every 6 hours As needed; 20 tablet. - Medication Reconciliation Form, Thank You Letter, Antibiotic Education, Prescription Opioid Use form. - Follow up: Private Physician; When: 2 - 3 days; Reason: Recheck today's complaints, Continuance of care, Re-evaluation by your physician. - Problem is new. - Symptoms have improved. Addendum: 09/22/2018 01:31 Co-signature as Attending Physician, Ed Deras MD. g s Signatures: Dispatcher [employer] Cheli Barfield, RN RN aj1 Michel Love PA PA jr8 Maged Naranjo RN RN jb4 Ed Deras MD MD gs Corrections: (The following items were deleted from the chart) 09/21 00:38 09/20 23:48 09/20/2018 23:48 Discharged to Home. Impression: Vomiting. Condition is jb4 Stable. Forms are Medication Reconciliation Form, Thank You Letter, Antibiotic Education, Prescription Opioid Use. Follow up: Private Physician; When: 2 - 3 days; Reason: Recheck today's complaints, Continuance of care, Re-evaluation by your physician. Problem is new. Symptoms have improved. jr8
[2018-09-21] MEDS ORDERED: PROMETHAZINE 25 MG/ML VIAL ONE (00:13)
== END 2018-09-21 00:38 | disposition home or self-care (01) ==
LOC: ER 21:09
DX: O21.9 Vomiting of pregnancy, unspecified (principal); Z3A.09 9 weeks gestation of pregnancy; F90.9 Attention-deficit hyperactivity disorder, unspecified type; J45.909 Unspecified asthma, uncomplicated
CPT/HCPCS: 36415; 80048; 80076; 81003; 81015; 81025; 83690; 85025; 96361; 96365; 96375; 99284; J2550; J7030